=== PATIENT | male | born 1970 | race Caucasian/White ===

== ENCOUNTER 2023-02-18 22:35 | Inpatient (IN) | payer OTHER ==
--- NOTE | 2023-02-18 22:58 | ED ---
Chest Pain HPI - General Chief Complaint: Chest Pain Stated Complaint: Chest Pain Time Seen by Provider: 02/18/23 22:37 Source: patient, EMS Mode of arrival: EMS Limitations: no limitations - History of Present Illness Initial Comments: Please see downtime charting. Patient is a 52-year-old male who presents to the emergency department reporting chest pain. Pain started just prior to hospital arrival area and he admits to associated shortness of breath. He does have a history of liver failure with ascites. 3 weeks ago the patient had 7 L removed from his abdomen. He is from the [place] area however is important [place] for the summer as his father lives felt this way. Patient continues to drink and is intoxicated at this time. He denies history of cardiac disease. He does not take any blood thinners. No other alleviating, precipitating or modifying factors - Related Data Home Medications Medication Instructions Recorded Confirmed Furosemide [Lasix] 40 mg PO DAILY 02/19/23 02/19/23 Spironolactone [Aldactone] 50 mg PO BID 02/19/23 02/19/23 Previous Rx's Medication Instructions Recorded Metoprolol Tartrate [Lopressor] 12.5 mg PO BID 30 Days #60 tablet 02/25/23 Thiamine [Vitamin B-1] 100 mg PO DAILY #14 tablet 02/25/23 Allergies Allergy/AdvReac Type Severity Reaction Status Date / Time latex Allergy Rash/Hives Verified 02/19/23 08:00 Review of Systems ROS Statement: Those systems with pertinent positive or pertinent negative responses have been documented in the HPI. ROS Other: All systems not noted in ROS Statement are negative. Past Medical History Past Medical History: Renal Disease Additional Past Medical History / Comment(s): Ascites, History of Any Multi-Drug Resistant Organisms: None Reported Past Psychological History: Depression Smoking Status: Current some day smoker Past Alcohol Use History: Daily, Heavy Past Drug Use History: None Reported - Past Family History Mother Family Medical History: Diabetes Mellitus General Exam Limitations: no limitations General appearance: alert, in no apparent distress Head exam: Present: atraumatic, normocephalic, normal inspection Eye exam: Present: normal appearance, PERRL, EOMI. Absent: scleral icterus, conjunctival injection, periorbital swelling ENT exam: Present: normal exam, mucous membranes moist Neck exam: Present: normal inspection. Absent: tenderness, meningismus, ly mphadenopathy Respiratory exam: Present: respiratory distress (on the right), decreased breath sounds. Absent: wheezes, rales, rhonchi, stridor Cardiovascular Exam: Present: tachycardia, normal heart sounds. Absent: systolic murmur, diastolic murmur, rubs, gallop, clicks GI/Abdominal exam: Present: soft, distended, normal bowel sounds. Absent: tenderness, guarding, rebound, rigid Extremities exam: Present: normal inspection, full ROM, normal capillary refill. Absent: tenderness, pedal edema, joint swelling, calf tenderness Back exam: Present: normal inspection Neurological exam: Present: alert, oriented X3, CN II-XII intact Psychiatric exam: Present: normal affect, normal mood Skin exam: Present: warm, dry, intact, normal color. Absent: rash Course Vital Signs 02/18/23 02/18/23 22:38 22:44 Temperature 98 F Pulse Rate 128 H Respiratory 18 Rate Blood Pressure 136/98 O2 Sat by Pulse 88 L 100 Oximetry Chest Pain MDM - MDM Was pt. sent in by a medical professional or institution (Dr. PA, BASS FISHER, urgent care, hospital, or retirement...) When possible be specific @ -No Did you speak to anyone other than the patient for history (EMS, parent, family, police, friend...)? What history was obtained from this source @ -EMS Did you review nursing and triage notes (agree or disagree)? Why? @ -I reviewed and agree with nursing and triage notes Were old charts reviewed (outside hosp., previous admission, EMS record, old EKG, old radiological studies, urgent care reports/EKG's, retirement records)? Report findings @ -No old charts were reviewed Differential Diagnosis (chest pain, altered mental status, abdominal pain women, abdominal pain men, vaginal bleeding, weakness, fever, dyspnea, syncope, headache, dizziness, GI bleed, back pain, seizure, CVA, palpatations, mental health, musculoskeletal)? @ -afib, svt, influenza, pulmonary edema, chf, copd EKG interpreted by me (3pts min.). @ -Yes and demonstrates sinus tachycardia with a rate of 125. NV interval 165. QRS 80. QTC is 390. No acute ST segment elevations or depressions X-rays interpreted by me (1pt min.). @ -yes - pleural effusion CT interpreted by me (1pt min.). @ -yes- no pe U/S interpreted by me (1pt. min.). @ -None done What testing was considered but not performed or refused? (CT, X-rays, U/S, labs)? Why? @ -None What meds were considered but not given or refused? Why? @ -None Did you discuss the management of the patient with other professionals (professionals i.e. , PA, BASS FISHER, lab, RT, psych nurse, perinatal social worker, mobile patrol officer, teacher, contracting officer, forensic manager)? Give summary @ -Dr. Bañuelos - admitting physician Was smoking cessation discussed for >3mins.? @ -No Was critical care preformed (if so, how long)? @ -No Were there social determinants of health that impacted care today? How? (Homelessness, low income, unemployed, alcoholism, drug addiction, transportation, low edu. Level, literacy, decrease access to med. care, half-way, rehab)? @ -No Was there de-escalation of care discussed even if they declined (Discuss DNR or withdrawal of care, Hospice)? DNR status @ -No What co-morbidities impacted this encounter? (DM, HTN, Smoking, COPD, CAD, Cancer, CVA, ARF, Chemo, Hep., AIDS, mental health diagnosis, sleep apnea, morbid obesity)? @ -etoh abuse, liver cirrhosis, ascites Was patient admitted / discharged? Hospital course, mention meds given and route, prescriptions, significant lab abnormalities, going to OR and other pertinent info. @ -Upon arrival patient is placed into trauma 1. A thorough history and physical exam is performed. 12-lead EKG is obtained. Laboratory studies are conducted. States that his pain is 6 out of 10. Chest x-ray demonstrates a large right-sided pleural effusion. He is on 6 L of oxygen normally does not require oxygen. Laboratory studies demonstrate low platelets and an INR 1.5. Patient will be admitted for pulmonology consult for possible thoracentesis Undiagnosed new problem with uncertain prognosis? @ -yes Drug Therapy requiring intensive monitoring for toxicity (Heparin, Nitro, Insulin, Cardizem)? @ -No Were any procedures done? @ -No Diagnosis/symptom? @ -acute hypoxis resp failure, acute pleural effusion, liver failure (chronic) Acute, or Chronic, or Acute on Chronic? @ -acute Uncomplicated (without systemic symptoms) or Complicated (systemic symptoms)? @ -complicated Side effects of treatment? @ -No Exacerbation, Progression, or Severe Exacerbation? @ -No Poses a threat to life or bodily function? How? (Chest pain, [place], [place], pneumonia, PE, COPD, DKA, ARF, appy, cholecystitis, CVA, Diverticulitis, Homicidal, Suicidal, threat to staff... and all critical care pts) @ -yes, hypoxia can lead to respiratory arrest Disposition Clinical Impression: Pleural effusion, Hypoxia, Cirrhosis Disposition: ADMITTED IP TO THIS HOSP Condition: Good Is patient prescribed a controlled substance at d/c from ED?: No
[2023-02-19 05:16] LABS: ALT 41 U/L (4-49); AST 107 U/L (17-59); African American GFR (CKD) >90 (>60 ml/min/1.73 sqM); Albumin 3.1 g/dL (3.5-5.0); Alkaline Phosphatase 364 U/L (38-126); Anion Gap 14 mmol/L; Anisocytosis Slight; Basophils % (A) 0 %; Blood Urea Nitrogen 11 mg/dL (9-20); Calcium 7.8 mg/dL (8.4-10.2); Carbon Dioxide 21 mmol/L (22-30); Chloride 105 mmol/L (98-107); Eosinophils % (A) 0 %; Glucose 127 mg/dL (74-99); HCT 39.4 % (39.0-53.0); HGB 13.1 gm/dL (13.0-17.5); Lipase 384 U/L (23-300); Lymphocytes % (A) 16 %; MCH 33.4 pg (25.0-35.0); MCHC 33.4 g/dL (31.0-37.0); Macrocytosis Slight; Magnesium 1.8 mg/dL (1.6-2.3); Mean Platelet Volume 8.6; Monocytes # (A) 0.3 k/uL (0-1.0); Monocytes % (A) 5 %; Neutrophils # (A) 4.6 k/uL (1.3-7.7); Neutrophils % (A) 75 %; Non-African American GFR(CKD) >90 (>60 ml/min/1.73 sqM); Potassium 4.3 mmol/L (3.5-5.1); RBC 3.94 m/uL (4.30-5.90); RDW 17.9 % (11.5-15.5); Sodium 140 mmol/L (137-145); Total Bilirubin 2.6 mg/dL (0.2-1.3); Total Protein 8.9 g/dL (6.3-8.2); WBC 6.1 k/uL (3.8-10.6)
[2023-02-19 05:17] LABS: INR 1.5 (<1.2); Partial Thromboplastin Time 31.4 sec (22.0-30.0)
[2023-02-19 05:21] LABS: Alcohol 407 mg/dL
--- NOTE | 2023-02-19 05:29 | XR ---
EXAMINATION TYPE: XR chest 2V DATE OF EXAM: 02/18/2023 COMPARISON: NONE HISTORY: Chest pain. Shortness of breath. TECHNIQUE: Frontal and lateral views of the chest are obtained. FINDINGS: Moderate to large size right pleural effusion is present. Silhouetting of the right heart border and right hemidiaphragm is seen. Left lung is clear. No definitive mediastinal shift. The os seous structures are intact. IMPRESSION: Moderate to large sized right pleural effusion. Clinical correlation and Follow-up advis ed.
[2023-02-19] MEDS ORDERED: NALOXONE 0.4 MG/ML 1 ML VIAL IV PRN (05:50)
[2023-02-19] MEDS ORDERED: LORazepam 1 MG TAB PO PRN ×2 (05:51)
[2023-02-19] MEDS ORDERED: LORazepam 0.5 MG TAB PO PRN (05:51)
[2023-02-19] MEDS ORDERED: THIAMINE 100 MG/ML 2 ML VIAL IM STA (05:51)
--- NOTE | 2023-02-19 05:57 | P.HPIM ---
History of Present Illness H&P Date: 02/19/23 The patient is a 52-year-old male with a PMH of alcoholic cirrhosis with ongoing alcohol abuse who presents to the emergency room with complaints of chest discomfort or shortness of breath. The reports that he has been experiencing intermittent substernal and right-sided chest discomfort occurring over the past several weeks. He reports that the current episode started earlier tonight at around 7 PM, with pressure-like substernal chest discomfort with radiation to the right side of the chest, with associated shortness of breath, with no alleviating or S being features, 4 out of 10 at maximal intensity. At time of injury, the patient reports that the pain has improved to a 2 out of 10. The patient states that he has been undergoing intermittent paracentesis roughly once monthly. He reports ongoing although values, currently drinking a pint of hard liquor on most days. He is not experiencing cough, fever, chills. Denied nausea, vomiting, abdominal pain, diarrhea. He underwent an extensive evaluation in the emergency room. Laboratory evaluation was remarkable for an alcohol level of 407, WBC count 6.1, hemoglobin 13, because 69, d-dimer 7.07, troponin less than 0.012, sodium 140, potassium 4.3, chloride 105, CO2 21, BUN 11, creatinine 0.5, glucose 127. CT chest revealed a large right-sided pleural effusion appearing loculated causing collapse of the right lung. There was no evidence for pulmonary embolism. ED documentation reviewed and case discussed with ED provider. Review of systems: Pertinent positives and negatives as discussed in HPI, a complete review of systems was performed and all other systems are negative. Physical examination: Vital signs reviewed General: Jaundiced appearing male, no distress, appears at stated age, normal weight Derm: no unusual rashes/lesions, warm Head: atraumatic, normocephalic, symmetric Eyes: EOMI, no lid lag, scleral icterus noted, pupils equal round reactive to light ENT: Nose and ears atraumatic Neck: No cervical lymphadenopathy, trachea midline, supple Mouth: no lip lesion, mucus membranes moist Cardiovascular: S1S2 reg, no murmur, positive dorsalis pedis pulse bilateral, no edema Lungs: CTA bilateral, no rhonchi, no rales, no accessory muscle use Abdominal: Distended, nontender to palpation, no guarding Ext: muscle strength 5 out of 5 in all 4 extremities grossly, no gross muscle atrophy, no contractures, Neuro: CN II-XI grossly intact, no gross focal neuro deficits Psych: Alert, oriented, appropriate affect Assessment: Acute hypoxic respiratory failure likely secondary to large R sided pleural effusion Alcoholic cirrhosis Ongoing alcohol abuse Thrombocytopenia Imaging: CT chest revealed a large right-sided pleural effusion appearing loculated causing collapse of the right lung. Data Review: Laboratory evaluation was remarkable for an alcohol level of 407, WBC count 6.1, hemoglobin 13, because 69, d-dimer 7.07, troponin less than 0.012, sodium 140, potassium 4.3, chloride 105, CO2 21, BUN 11, creatinine 0.5, glucose 127. Plan: Pulmonary consulted for thoracentesis The patient counseled extensively on the need for alcohol cessation Thrombocytopenia likely due to alcohol abuse CIWA protocol with Ativan po prn Thiamine DVT prophylaxis: IPCD's The patient is admitted with an anticipated greater than 2 midnight stay for evaluation of hypoxic resp failure CODE STATUS: Full Code Discussed with: Patient Anticipated discharge place: Home Past Medical History Past Medical History: Liver Disease, Renal Disease Additional Past Medical History / Comment(s): Ascites, History of Any Multi-Drug Resistant Organisms: None Reported Past Psychological History: Depression Smoking Status: Current some day smoker Past Alcohol Use History: Daily, Heavy Past Drug Use History: None Reported - Past Family History Mother Family Medical History: Diabetes Mellitus Medications and Allergies Allergies Allergy/AdvReac Type Severity Reaction Status Date / Time latex AdvReac Rash/Hives Verified 02/18/23 22:52 Physical Exam Vitals: Vital Signs Temp Pulse Resp BP Pulse Ox 02/18/23 22:44 100 02/18/23 22:38 98 F 128 H 18 136/98 88 L Intake and Output 02/18/23 02/18/23 02/19/23 14:59 22:59 06:59 Other: # Voids 0 Weight 79.379 kg Results CBC & Chem 7: 02/18/23 22:46 Labs: Abnormal Lab Results - Last 24 Hours (Table) 02/18/23 Range/Units 22:46 Carbon Dioxide 21 L (22-30) mmol/L Creatinine 0.51 L (0.66-1.25) mg/dL Glucose 127 H (74-99) mg/dL Calcium 7.8 L (8.4-10.2) mg/dL Total Bilirubin 2.6 H (0.2-1.3) mg/dL AST 107 H (17-59) U/L Alkaline Phosphatase 364 H (38-126) U/L Total Protein 8.9 H (6.3-8.2) g/dL Albumin 3.1 L (3.5-5.0) g/dL Lipase 384 H (23-300) U/L Serum Alcohol 407 H* mg/dL
[2023-02-19 05:58] LABS: Platelet Count 69 k/uL (150-450)
[2023-02-19] MEDS: LORazepam 1 MG TAB PO PRN ×3 (08:28→21:14)
--- NOTE | 2023-02-19 08:31 | P.CNPUL ---
History of Present Illness Consult date: 02/19/23 Requesting physician: Ericka Bañuelos Reason for consult: pleural effusion Chief complaint: Shortness of breath and associated chest pain History of present illness: I am seeing this patient in new consultation today 02/19/2023 for a large right- sided pleural effusion. Patient is a 52-year-old white male with past medical history significant for alcoholism, drinks approximately 1 pint per day, liver cirrhosis and ascites requiring frequent paracentesis, and is a current smoker. Patient came into the emergency room last night complaining of shortness of breath and chest pain that radiated from the left side of his chest to the right. Patient was intoxicated on arrival with a serum EtOH level of 407. Patient does have large volume ascites, and his last paracentesis was reportedly 3 weeks ago. Chest x-ray on arrival shows a large sized right pleural effusion. Patient's d-dimer was elevated on arrival, probably related to the patient's liver disease. I did review the patient's chest CTA, and there is no obvious central pulmonary embolism. There was redemonstration of the large right pleural effusion. He denies taking any anticoagulants. Patient is currently resting in bed, on 6 L nasal cannula, in no acute distress. He denies any fever, chills, cough, sick contacts. He reports occasional palpitations. Denies any lower extremity swelling, orthopnea, PND, syncope. Troponin was negative 1. ECG on arrival showed no obvious evidence of acute ischemic changes. CBC shows a WBC count of 6.1, hemoglobin 13, hematocrit 39, platelets low at 69. INR is 1.5. CMP shows a sodium 140, potassium 4.3, chloride 105, serum bicarb 21, BUN 11, creatinine 0.51, glucose 127. LFTs are mildly elevated. Lipase was mildly elevated at 384. Patient is currently on the CIWA protocol, no obvious signs of withdrawal. No need for ICU admission currently. He is also receiving vitamin B1 supplementation. Vital signs are stable. Review of Systems REVIEW OF SYSTEMS: CONSTITUTIONAL: Denies any recent significant weight loss or weight gain. Denies recent trauma. EYES: Denies change in vision. EARS, NOSE, MOUTH, THROAT: Denies headaches, denies sore throat. CARDIOVASCULAR: See HPI RESPIRATORY: See HPI. GASTROINTESTINAL: Denies change in appetite, abdominal pain, nausea and vomiting, or diarrhea. admits abdominal distention. GENITOURINARY: Denies hematuria, denies infections. MUSKULOSKELETAL: Denies pain, denies swelling. INTEGUMENTARY: Denies rash, denies eczema. NEUROLOGICAL: Denies recent memory loss, no recent seizure activity. PSYCHIATRIC: Denies anxiety, denies depression. HEMATOLOGIC/LYMPHATIC: Denies anemia, denies enlarged lymph node Past Medical History Past Medical History: Renal Disease Additional Past Medical History / Comment(s): Ascites, History of Any Multi-Drug Resistant Organisms: None Reported Past Psychological History: Depression Smoking Status: Current some day smoker Past Alcohol Use History: Daily, Heavy Past Drug Use History: None Reported - Past Family History Mother Family Medical History: Diabetes Mellitus Medications and Allergies Home Medications Medication Instructions Recorded Confirmed Type Furosemide [Lasix] 40 mg PO DAILY 02/19/23 02/19/23 History Spironolactone [Aldactone] 50 mg PO BID 02/19/23 02/19/23 History Allergies Allergy/AdvReac Type Severity Reaction Status Date / Time latex Allergy Rash/Hives Verified 02/19/23 08:00 Physical Exam Vitals: Vital Signs Temp Pulse Pulse Resp BP BP Pulse Ox 02/19/23 07:44 97.6 F 117 H 20 129/79 94 L 02/18/23 22:44 100 02/18/23 22:38 98 F 128 H 18 136/98 88 L Intake and Output 02/18/23 02/19/23 02/19/23 22:59 06:59 14:59 Other: # Voids 0 Weight 79.379 kg GENERAL EXAM: Alert, 52-year-old white male, comfortable in no apparent distress. HEAD: Normocephalic and atraumatic EYES: Normal reaction of pupils, equal size. NOSE: Clear with pink turbinates. THROAT: No erythema or exudates. NECK: No masses, no JVD. CHEST: No chest wall deformity. LUNGS: Diminished right sided lung sounds. no crackles, wheeze, rhonchi or dullness. On 6 L/m nasal cannula. No conversational dyspnea or accessory muscle use.. CVS: S1 and S2 normal with no audible murmur, regular rhythm. No extra heart sounds ABDOMEN: There is significant large volume ascites. Active bowel sounds, no guarding or rigidity. SPINE: No scoliosis or deformity SKIN: No rashes CENTRAL NERVOUS SYSTEM: No focal deficits, tone is normal in all 4 extremities. Mild tremor appreciated with arm extension. EXTREMITIES: There is no peripheral edema, clubbing, or cyanosis. Peripheral pulses are intact. Results - Laboratory Findings CBC and BMP: 02/19/23 09:56 02/19/23 09:56 PT/INR, D-dimer PT 15.0 sec (9.0-12.0) H 02/18/23 22:46 INR 1.5 (<1.2) H 02/18/23 22:46 D-Dimer 7.07 mg/L FEU (<0.60) H 02/18/23 22:46 Abnormal lab findings: Abnormal Labs 02/18/23 02/18/23 02/18/23 22:46 22:46 22:46 RBC 3.94 L RDW 17.9 H Plt Count 69 L PT 15.0 H INR 1.5 H APTT 31.4 H D-Dimer 7.07 H Carbon Dioxide 21 L Creatinine 0.51 L Glucose 127 H Calcium 7.8 L Total Bilirubin 2.6 H AST 107 H Alkaline Phosphatase 364 H Total Protein 8.9 H Albumin 3.1 L Lipase 384 H Serum Alcohol 407 H* - Diagnostic Findings Chest x-ray: image reviewed CT scan - chest: image reviewed Assessment and Plan Assessment: Acute hypoxemic respiratory failure, currently on 6 L/m nasal cannula, related to large right-sided pleural effusion, possible hepatic hydrothorax. Chest pain, acute coronary syndrome ruled out Elevated d-dimer, no obvious central pulmonary embolism on chest CTA. Acute alcohol intoxication, serum EtOH was 407 on arrival History of alcoholism History of alcohol withdrawal and delirium tremens Alcoholic liver disease and ascites Thrombocytopenia, likely related to liver disease Current smoker Plan: Patient's medications, labs, chest x-ray, chest CTA reviewed Continue supplemental oxygen to maintain oxygen saturation 92% or greater Consult interventional radiology for paracentesis I will discuss the need for right-sided thoracentesis today with Dr. Pugh Not on any anticoagulants Continue CIWA protocol Continue vitamin B1 supplementation No need for ICU admission at this point Nicotine replacement offered Smoking cessation education performed We will continue to follow I have personally seen and examined the patient, performed the documentation and the assessment and plan as written. Number of minutes spent on the visit:20 This is a joint evaluation that was done along with the nurse practitioner. The patient is a 52-year-old nice gentleman who lives in the [place] area and he has had issues with liver cirrhosis and ascites and the patient has had previous paracentesis. He does not recall having any thoracentesis. He came in with hypoxic respiratory failure and he has a large right-sided pleural effusion that needs to be drained. I'm going to do a bedside thoracentesis on this patient and the patient will likely need an IR guided paracentesis of the sciatic fluids. We'll watch for any signs of delirium tremens. We'll continue to follow. He is awake and communicating at this point in time. No signs of any agitation or restlessness or confusion or encephalopathy. His ventilation within a more than 30 minutes. Time with Patient: Greater than 30
[2023-02-19] MEDS ORDERED: FUROSEMIDE 40 MG TAB PO SCH (09:00)
[2023-02-19 10:53] LABS: ALT 44 U/L (4-49); AST 114 U/L (17-59); African American GFR (CKD) >90 (>60 ml/min/1.73 sqM); Albumin 3.2 g/dL (3.5-5.0); Albumin/Globulin Ratio 0.6; Alkaline Phosphatase 379 U/L (38-126); Anion Gap 12 mmol/L; Blood Urea Nitrogen 10 mg/dL (9-20); Calcium 7.6 mg/dL (8.4-10.2); Carbon Dioxide 22 mmol/L (22-30); Chloride 101 mmol/L (98-107); Globulin 5.8 g/dL; Glucose 107 mg/dL (74-99); Non-African American GFR(CKD) >90 (>60 ml/min/1.73 sqM); Potassium 4.5 mmol/L (3.5-5.1); Sodium 135 mmol/L (137-145); Total Bilirubin 2.9 mg/dL (0.2-1.3)
[2023-02-19 11:09] LABS: Anisocytosis Slight; HCT 39.4 % (39.0-53.0); HGB 13.1 gm/dL (13.0-17.5); MCH 34.5 pg (25.0-35.0); MCHC 33.3 g/dL (31.0-37.0); MCV 103.7 fL (80.0-100.0); Macrocytosis Moderate; Mean Platelet Volume 9.3; RDW 17.4 % (11.5-15.5); WBC 5.6 k/uL (3.8-10.6)
[2023-02-19 11:27] LABS: Platelet Count 64 k/uL (150-450)
--- NOTE | 2023-02-19 11:52 | CT ---
EXAM: CT Angiography Chest With Intravenous Contrast CLINICAL HISTORY: Elevated D-dimer TECHNIQUE: Axial computed tomographic angiography images of the chest with intravenous contrast. CTDI is 17.8 mGy and DLP is 506.1 mGy-cm. This CT exam was performed using one or more of the following dose reduction techniques: automated exposure control, adjustment of the mA and/or kV according to patient size, and/or use of iterative reconstruction technique. MIP reconstructed images were created and reviewed. Coronal and sagittal reformatted images were created and reviewed. 569 images COMPARISON: lateral Chest radiograph from yesterday FINDINGS: Pulmonary arteries: No pulmonary embolism. No thoracic aortic aneurysm or dissection. Aorta: No acute findings. No thoracic aortic aneurysm. Lungs: Unremarkable. No mass. No consolidation. Pleural space: Large right pleural effusion, appears loculated, causing collapse of right lung. No pneumothorax. Heart: Unremarkable. No cardiomegaly. No significant pericardial effusion. No evidence of RV dysfunction. Bones/joints: Osteopenia. Mild degenerative changes. No acute findings Soft tissues: Bilateral gynecomastia. Mild anasarca. Lymph nodes: Unremarkable. No enlarged lymph nodes. Liver: Diffuse fatty infiltration the liver. Questionable Cirrhosis . Gallbladder and bile ducts: Cholecystectomy clips. Kidneys and ureters: 12 mm exophytic lateral left renal cyst. IMPRESSION: 1. Large right pleural effusion, appears loculated, causing collapse of right lung. 2. No pulmonary embolism. No thoracic aortic aneurysm or dissection. 3. Bilateral gynecomastia. 4. Mild anasarca. 5. Diffuse fatty infiltration the liver. Questionable Cirrhosis .
--- NOTE | 2023-02-19 12:19 | P.PCN ---
Date of Procedure: 02/19/23 Description of Procedure: A time out was performed and the chest x-ray was reviewed, the appropriate side was confirmed and marked. My hands were washed immediately prior to the procedure. I wore a surgical cap, mask with protective eyewear, sterile gown and sterile gloves throughout the procedure. The patient was prepped and draped in a sterile manner using chlorhexidine scrub after the appropriate level was percussed and confirmed by ultrasound. 1% lidocaine was used to anesthesize the skin, subcutaneous tissue, superior aspect of the rib periosteum and parietal pleura. A finder needle was then introduced over the superior aspect of the rib to locate the pleural fluid; 2colored fluid was aspirated at a depth of approximately 2 cm. A 10-blade scalpel was used to russel the skin at the insertion site. The [id number] needle was then introduced through the skin incision into the pleural space using negative aspiration pressure and the red colometric indicator to confirm appropriate positioning of the needle. The thoracentesis catheter was then threaded without difficulty. 2400 ml of turbid colored fluid was removed without difficulty. The catheter was then removed. No immediate complications were noted during the procedure. A post-procedure chest x-ray is pending at the time of this note. The fluid will be sent for studies. Estimated blood loss is 0cc
[2023-02-19] MEDS: SPIRONOLACTONE 25 MG TAB PO SCH ×2 (12:36→21:14)
[2023-02-19] MEDS: NICOTINE 21MG/24HR PATCH TRANSDERM SCH (12:36)
--- NOTE | 2023-02-19 13:05 | XR ---
EXAMINATION TYPE: XR chest 1V portable DATE OF EXAM: 02/19/2023 Comparison: 02/18/2023 Clinical History: 52-year-old male follow up thoracentesis. Findings: Some progression of volume loss in the right hemithorax. Moderate to large right-sided pleural effusi on remains with underlying patchy opacity to the upper third lung level. There is a small 3.6 cm righ t upper lung pneumothorax noted now. Left lung and pleural space are clear. Right heart margin obscur ed by adjacent parenchymal opacity. Impression: 1. Moderate to large residual right-sided pleural effusion following thoracentesis. Decreased from pr ior. 2. However, there is a small 3.6 cm right apical pneumothorax noted now. Called to [facility] and given t o nurse Pickard at 1:00 pm. 3. Some progression in volume loss in the right side of the chest.
[2023-02-19] MEDS: FUROSEMIDE 10 MG/ML 4 ML VIAL IV SCH ×2 (13:25→21:14)
--- NOTE | 2023-02-19 15:58 | XR ---
EXAMINATION TYPE: XR chest 1V portable DATE OF EXAM: 02/19/2023 COMPARISON: 02/19/2023 HISTORY: Postthoracentesis TECHNIQUE: Single frontal view of the chest is obtained. FINDINGS: Remains right sided consolidation moderate pleural effusion with a small less than 5% apic al pneumothorax. Left lung clear. Heart size stable. Arthropathy of the shoulders. IMPRESSION: 1. Stable moderate-sized pleural effusion with small approximately 5% right apical pneumothorax. No s ignificant change.
[2023-02-19] MEDS ORDERED: SODIUM CHLORIDE 0.9% 500 ML 500 ML IV ONE (16:54)
[2023-02-20] MEDS ORDERED: LORazepam 2 MG/ML INJ IV PRN ×2 (00:50)
[2023-02-20] MEDS: LORazepam 2 MG/ML INJ IV PRN ×6 (01:32→23:18)
[2023-02-20 03:21] LABS: Amylase,Body Fluid 51 U/L; Glucose, BF Source Pleural Fluid; Glucose, Body Fluid 117 mg/dL; LDH, Body Fluid Source Pleural Fluid; T. Protein, Body Fluid Source Pleural Fluid; Total Protein, Body Fluid 2460 mg/dL
[2023-02-20 05:11] LABS: Appearance,BF Slightly Cloudy (Clear)
[2023-02-20] MEDS: NICOTINE 21MG/24HR PATCH TRANSDERM SCH (08:20)
[2023-02-20] MEDS: FUROSEMIDE 10 MG/ML 4 ML VIAL IV SCH ×2 (08:20→21:00)
[2023-02-20] MEDS: SPIRONOLACTONE 25 MG TAB PO SCH ×2 (08:20→21:00)
[2023-02-20] MEDS: THIAMINE 100 MG TAB PO SCH (08:20)
[2023-02-20 09:32] LABS: ALT 43 U/L (4-49); AST 114 U/L (17-59); African American GFR (CKD) >90 (>60 ml/min/1.73 sqM); Albumin/Globulin Ratio 0.5; Alkaline Phosphatase 376 U/L (38-126); Anion Gap 8 mmol/L; Blood Urea Nitrogen 10 mg/dL (9-20); Calcium 7.9 mg/dL (8.4-10.2); Carbon Dioxide 28 mmol/L (22-30); Chloride 96 mmol/L (98-107); Globulin 5.8 g/dL; Glucose 82 mg/dL (74-99); Non-African American GFR(CKD) >90 (>60 ml/min/1.73 sqM); Potassium 3.4 mmol/L (3.5-5.1); Sodium 132 mmol/L (137-145); Total Bilirubin 3.8 mg/dL (0.2-1.3); Total Protein 8.8 g/dL (6.3-8.2)
[2023-02-20 09:49] LABS: Anisocytosis Slight; HCT 39.1 % (39.0-53.0); HGB 12.9 gm/dL (13.0-17.5); MCH 33.2 pg (25.0-35.0); MCHC 33.1 g/dL (31.0-37.0); MCV 100.4 fL (80.0-100.0); Macrocytosis Slight; Mean Platelet Volume 12.2; RBC 3.89 m/uL (4.30-5.90); RDW 17.5 % (11.5-15.5); WBC 4.2 k/uL (3.8-10.6)
[2023-02-20 10:12] LABS: Platelet Count 35 k/uL (150-450)
[2023-02-20 11:19] LABS: Total Protein 8.7 d/dL (6.2-8.2)
[2023-02-20] MEDS ORDERED: POTASSIUM CHLORIDE ER 20 MEQ TAB.ER PO STA (13:56)
--- NOTE | 2023-02-20 14:23 | P.PN ---
Subjective Progress Note Date: 02/20/23 The patient is a 52-year-old male with a PMH of alcoholic cirrhosis with ongoing alcohol abuse who presents to the emergency room with complaints of chest discomfort or shortness of breath. He underwent an extensive evaluation in the emergency room. Laboratory evaluation was remarkable for an alcohol level of 407, WBC count 6.1, hemoglobin 13, because 69, d-dimer 7.07, troponin less than 0.012, sodium 140, potassium 4.3, chloride 105, CO2 21, BUN 11, creatinine 0.5, glucose 127. CT chest revealed a large right-sided pleural effusion appearing loculated causing collapse of the right lung. There was no evidence for pulmonary embolism. Patient started on Lasix 40 mg IV twice a day. Aldactone was restarted. Pulmonology was consulted and patient underwent thoracentesis with removal of 2400 mL of fluid. He was empirically started on Rocephin for treatment of SBP. Interventional radiology was consulted for paracentesis. Unfortunately, this procedure was delayed due to a platelet count of 35. Patient was seen and examined. No acute events overnight. Patient reports no complaints. He has been tachycardic with heart rate in the 130-140s. CBC today shows Hg 12.9 and platelet count of 35.CMP shows Na 132. K 3.4, Cl 96, Cr 0.46, Ca 7.9, T. Bili 3.8, AST 114, alk phos 376, albumin 3.0. Vital signs reviewed General: Jaundiced appearing male, no distress, appears at stated age, normal w [age] Derm: no unusual rashes/lesions, warm Head: atraumatic, normocephalic, symmetric Eyes: EOMI, no lid lag, scleral icterus noted ENT: Nose and ears atraumatic Neck: No cervical lymphadenopathy, trachea midline, supple Cardiovascular: Tachycardic, no murmur, no edema Lungs: Decreased BS bilateral, no rhonchi, no rales, no accessory muscle use Abdominal: Distended, nontender to palpation, no guarding Ext: muscle strength 5 out of 5 in all 4 extremities grossly, no gross muscle atrophy, no contractures, Neuro: no gross focal neuro deficits Psych: Alert, oriented, appropriate affect Acute hypoxic respiratory failure likely secondary to large R sided pleural effusion Alcoholic cirrhosis Ongoing alcohol abuse Thrombocytopenia Based on my assessment of this patient, this patient meets a high complexity level of care. Patient has an acute diagnosis of acute hypoxic respiratory failure secondary to large loculated right-sided pleural effusion that poses a threat to life or bodily function. He underwent thoracentesis on 02/19 with removal 2400 mL of fluid. Plans for paracentesis tomorrow with interventional radiology. Plans to transfuse 1 unit platelet. Continue Lasix 40 mg IV twice a day. Daily monitoring of BMP as Lasix is nephrotoxic. Aldactone 50 mg by mouth twice a day. Start metoprolol 12.5 mg by mouth twice a day for tachycardia. Continue CIWA protocol with Ativan as needed. Telemetry monitoring and supplemental O2 to maintain O2 saturation > 92%. SCDs for DVT prophylaxis. FULL CODE. I have reviewed the following [facility] consultant notes: I have reviewed the results of the following tests: CBC, CMP as above. I have ordered the following tests: Echocardiogram ordered. Repeat CBC and BMP tomorrow morning. I have discussed the care of this patient with the following independent historian: I have independently interpreted the following test below: CXR from 02/19 shows small apical PTX on the right side. I have discussed the management of this patient with the following physician: The case was discussed with Dr. Pugh regarding findings on CXR yesterday. Objective - Vital Signs Vital signs: Vital Signs Temp 98.1 F 02/20/23 07:33 Pulse 133 H 02/20/23 07:38 Resp 20 02/20/23 07:38 BP 144/95 02/20/23 07:33 Pulse Ox 92 L 02/20/23 07:33 FiO2 Intake & Output 02/19/23 02/20/23 02/20/23 18:59 06:59 18:59 Output Total 800 Balance -800 Output: Urine 800 Other: Voiding Method Urinal Urinal Urinal # Voids 3 2 1 - Labs CBC & Chem 7: 02/20/23 07:28 02/20/23 07:28 Labs: Abnormal Lab Results - Last 24 Hours (Table) 02/19/23 02/20/23 02/20/23 Range/Units 12:15 07:28 07:28 RBC 3.89 L (4.30-5.90) m/uL Hgb 12.9 L (13.0-17.5) gm/dL MCV 100.4 H (80.0-100.0) fL RDW 17.5 H (11.5-15.5) % Plt Count 35 L (150-450) k/uL Sodium (137-145) mmol/L Potassium (3.5-5.1) mmol/L Chloride (98-107) mmol/L Creatinine (0.66-1.25) mg/dL Calcium (8.4-10.2) mg/dL Total Bilirubin (0.2-1.3) mg/dL AST (17-59) U/L Alkaline Phosphatase (38-126) U/L Total Protein 8.7 H (6.2-8.2) d/dL Albumin (3.5-5.0) g/dL Fluid Appearance Slightly Cloudy A (Clear) 02/20/23 Range/Units 07:28 RBC (4.30-5.90) m/uL Hgb (13.0-17.5) gm/dL MCV (80.0-100.0) fL RDW (11.5-15.5) % Plt Count (150-450) k/uL Sodium 132 L (137-145) mmol/L Potassium 3.4 L (3.5-5.1) mmol/L Chloride 96 L (98-107) mmol/L Creatinine 0.46 L (0.66-1.25) mg/dL Calcium 7.9 L (8.4-10.2) mg/dL Total Bilirubin 3.8 H (0.2-1.3) mg/dL AST 114 H (17-59) U/L Alkaline Phosphatase 376 H (38-126) U/L Total Protein 8.8 H (6.2-8.2) d/dL Albumin 3.0 L (3.5-5.0) g/dL Fluid Appearance (Clear)
[2023-02-20] MEDS: METOPROLOL TARTRATE 12.5 MG TAB PO SCH ×2 (15:24→21:00)
--- NOTE | 2023-02-20 16:05 | P.PN ---
Subjective Progress Note Date: 02/20/23 I am seeing this patient in new consultation today 02/19/2023 for a large right- sided pleural effusion. Patient is a 52-year-old white male with past medical history significant for alcoholism, drinks approximately 1 pint per day, liver cirrhosis and ascites requiring frequent paracentesis, and is a current smoker. Patient came into the emergency room last night complaining of shortness of breath and chest pain that radiated from the left side of his chest to the right. Patient was intoxicated on arrival with a serum EtOH level of 407. Patient does have large volume ascites, and his last paracentesis was reportedly 3 weeks ago. Chest x-ray on arrival shows a large sized right pleural effusion. Patient's d-dimer was elevated on arrival, probably related to the patient's liver disease. I did review the patient's chest CTA, and there is no obvious central pulmonary embolism. There was redemonstration of the large right pleural effusion. He denies taking any anticoagulants. Patient is currently resting in bed, on 6 L nasal cannula, in no acute distress. He denies any fever, chills, cough, sick contacts. He reports occasional palpitations. Denies any lower extremity swelling, orthopnea, PND, syncope. Troponin was negative 1. ECG on arrival showed no obvious evidence of acute ischemic changes. CBC shows a WBC count of 6.1, hemoglobin 13, hematocrit 39, platelets low at 69. INR is 1.5. CMP shows a sodium 140, potassium 4.3, chloride 105, serum bicarb 21, BUN 11, creatinine 0.51, glucose 127. LFTs are mildly elevated. Lipase was mildly elevated at 384. Patient is currently on the CIWA protocol, no obvious signs of withdrawal. No need for ICU admission currently. He is also receiving vitamin B1 supplementation. Vital signs are stable. On today's evaluation of 02/18/2023, the patient is not having any respiratory distress. He has developed some sinus tachycardia which could be a reflection of either an underlying infection such as SBP or early signs of delirium tremens. The patient was covered with IV Rocephin. The patient was started on metoprolol 12.5 mg 2 twice a day. He is currently on 3 L of oxygen by nasal cannula. Heart rate is between 09/21/1931. The abdomen is extensive. A total of 4.2 with hemoglobin 12.9 and platelet count of 35. BUN is 10 with a creatinine of 0.4. Sodium is at 1:30 with a potassium level of 3.4 and chloride is 96 with a bicarb of 28. Is quite debilitated. Objective - Vital Signs Vital signs: Vital Signs Temp 98.1 F 02/20/23 07:33 Pulse 133 H 02/20/23 07:38 Resp 20 02/20/23 07:38 BP 144/95 02/20/23 07:33 Pulse Ox 92 L 02/20/23 07:33 FiO2 Intake & Output 02/19/23 02/20/23 02/20/23 18:59 06:59 18:59 Output Total 800 Balance -800 Output: Urine 800 Other: Voiding Method Urinal Urinal Urinal # Voids 3 2 1 - Exam GENERAL EXAM: Alert, 52-year-old white male, comfortable in no apparent distress. HEAD: Normocephalic and atraumatic EYES: Normal reaction of pupils, equal size. NOSE: Clear with pink turbinates. THROAT: No erythema or exudates. NECK: No masses, no JVD. CHEST: No chest wall deformity. LUNGS: Diminished right sided lung sounds. no crackles, wheeze, rhonchi or dullness. On 3 L/m nasal cannula. No conversational dyspnea or accessory muscle use.. CVS: S1 and S2 normal with no audible murmur, regular rhythm. No extra heart sounds ABDOMEN: There is significant large volume ascites. Active bowel sounds, no guarding or rigidity. SPINE: No scoliosis or deformity SKIN: No rashes CENTRAL NERVOUS SYSTEM: No focal deficits, tone is normal in all 4 extremities. Mild tremor appreciated with arm extension. EXTREMITIES: There is no peripheral edema, clubbing, or cyanosis. Peripheral pulses are intact. - Labs CBC & Chem 7: 02/20/23 07:28 02/20/23 07:28 Labs: Abnormal Lab Results - Last 24 Hours (Table) 02/19/23 02/19/23 02/20/23 Range/Units 09:56 12:15 07:28 RBC 3.80 L 3.89 L (4.30-5.90) m/uL Hgb 12.9 L (13.0-17.5) gm/dL MCV 103.7 H 100.4 H (80.0-100.0) fL RDW 17.4 H 17.5 H (11.5-15.5) % Plt Count 64 L 35 L (150-450) k/uL Sodium (137-145) mmol/L Potassium (3.5-5.1) mmol/L Chloride (98-107) mmol/L Creatinine (0.66-1.25) mg/dL Calcium (8.4-10.2) mg/dL Total Bilirubin (0.2-1.3) mg/dL AST (17-59) U/L Alkaline Phosphatase (38-126) U/L Total Protein (6.3-8.2) g/dL Albumin (3.5-5.0) g/dL Fluid Appearance Slightly Cloudy A (Clear) 02/20/23 Range/Units 07:28 RBC (4.30-5.90) m/uL Hgb (13.0-17.5) gm/dL MCV (80.0-100.0) fL RDW (11.5-15.5) % Plt Count (150-450) k/uL Sodium 132 L (137-145) mmol/L Potassium 3.4 L (3.5-5.1) mmol/L Chloride 96 L (98-107) mmol/L Creatinine 0.46 L (0.66-1.25) mg/dL Calcium 7.9 L (8.4-10.2) mg/dL Total Bilirubin 3.8 H (0.2-1.3) mg/dL AST 114 H (17-59) U/L Alkaline Phosphatase 376 H (38-126) U/L Total Protein 8.8 H (6.3-8.2) g/dL Albumin 3.0 L (3.5-5.0) g/dL Fluid Appearance (Clear) Assessment and Plan Assessment: Acute hypoxemic respiratory failure, currently on 3 L/m nasal cannula, related to large right-sided pleural effusion, and the patient underwent a thoracentesis with a total of 2.4 L of fluid being removed Pneumothorax ex vacuo the right upper lung field in the order of 5-10% Sinus tachycardia, rule out underlying [employer] and the patient is currently on IV Rocephin. Rule out early signs of delirium tremens Chest pain, acute coronary syndrome ruled out Elevated d-dimer, no obvious central pulmonary embolism on chest CTA. Acute alcohol intoxication, serum EtOH was 407 on arrival History of alcoholism History of alcohol withdrawal and delirium tremens Alcoholic liver disease and ascites Thrombocytopenia, likely related to liver disease Current smoker Plan: Monitor tachycardia Cardiac Rocephin Agree on putting the patient on beta federica patient started on metoprolol Monitor heart rate Paracentesis by interventional radiology Watch for any signs of delirium tremens We'll continue to follow Poor prognosis based on the above-mentioned comorbidities
--- NOTE | 2023-02-20 16:07 | CA ---
Transthoracic Echo Report Name: Carlos Scott Age: 52 Gender: M : 1970 Exam Date: 02/20/2023 10:32 Exam Location: [facility] Ht (in): 75 Wt (lb): 175 Ordering Physician: Luis Aleman MD Attending/Referring Phys: Manager Audio Deanna Julien RDCS Procedure CPT: Indications: pleural effusion Cardiac Hx: Technical Quality: Fair Contrast 1: Total Dose (mL): Contrast 2: Total Dose (mL): MEASUREMENTS (Male / Female) Normal Values 2D ECHO LV Diastolic Diameter PLAX 2.9 cm 4.2 - 5.9 / 3.9 - 5.3 cm LV Systolic Diameter PLAX 2.3 cm IVS Diastolic Thickness 1.6 cm 0.6 - 1.0 / 0.6 - 0.9 cm LVPW Diastolic Thickness 1.3 cm 0.6 - 1.0 / 0.6 - 0.9 cm LV Relative Wall Thickness 1.0 DOPPLER AV Peak Velocity 110.4 cm/s AV Peak Gradient 4.9 mmHg TV Peak Velocity 233.8 cm/s FINDINGS Left Ventricle Limited study. Tachycardia. Moderately increased left ventricular wall thickness. Normal left ventricular wall motion. Normal left ventricular diastolic filling pattern. Normal left ventricular systolic function with no obvious regional wall motion abnormalities. Left ventricular ejection fraction is estimated at 50-55 %. Right Ventricle Normal right ventricular size and function. Right ventricular systolic pressure within normal limits. Right Atrium Normal right atrial size. Left Atrium Normal left atrial size. Mitral Valve No mitral stenosis, regurgitation or prolapse. Aortic Valve No aortic stenosis. No aortic regurgitation. Tricuspid Valve Structurally normal tricuspid valve. Mild tricuspid regurgitation. Pulmonic Valve Structurally normal pulmonic valve. Pericardium No pericardial effusion. Pleural effusion. Aorta Normal size aortic root and proximal ascending aorta. CONCLUSIONS Limited 2-D echo Moderate increased left ventricular wall thickness Left ventricular ejection fraction 5055% Normal right ventricular size and function Mild tricuspid regurgitation Large pleural effusion No pericardial effusion Previewed by: Dr. Román Muñoz DO (Electronically Signed) Final Date: 20 February 2023 16:06
[2023-02-21] MEDS: LORazepam 2 MG/ML INJ IV PRN (03:22)
[2023-02-21 08:28] LABS: Anisocytosis Slight; HCT 35.9 % (39.0-53.0); HGB 11.9 gm/dL (13.0-17.5); MCH 33.3 pg (25.0-35.0); MCHC 33.1 g/dL (31.0-37.0); MCV 100.8 fL (80.0-100.0); Macrocytosis Slight; Mean Platelet Volume 10.1; RBC 3.56 m/uL (4.30-5.90); RDW 17.4 % (11.5-15.5); WBC 5.3 k/uL (3.8-10.6)
[2023-02-21 08:31] LABS: Platelet Count 30 k/uL (150-450)
[2023-02-21] MEDS: FUROSEMIDE 10 MG/ML 4 ML VIAL IV SCH ×2 (08:51→20:36)
[2023-02-21 08:52] LABS: ALT 39 U/L (4-49); AST 94 U/L (17-59); African American GFR (CKD) >90 (>60 ml/min/1.73 sqM); Albumin 2.7 g/dL (3.5-5.0); Albumin/Globulin Ratio 0.5; Alkaline Phosphatase 321 U/L (38-126); Anion Gap 4 mmol/L; Blood Urea Nitrogen 12 mg/dL (9-20); Calcium 7.8 mg/dL (8.4-10.2); Carbon Dioxide 31 mmol/L (22-30); Chloride 95 mmol/L (98-107); Globulin 5.3 g/dL; Glucose 90 mg/dL (74-99); Non-African American GFR(CKD) >90 (>60 ml/min/1.73 sqM); Potassium 3.5 mmol/L (3.5-5.1); Sodium 130 mmol/L (137-145); Total Bilirubin 3.8 mg/dL (0.2-1.3)
[2023-02-21] MEDS: METOPROLOL TARTRATE 12.5 MG TAB PO SCH ×2 (09:24→20:36)
[2023-02-21] MEDS: THIAMINE 100 MG TAB PO SCH (09:25)
[2023-02-21] MEDS: SPIRONOLACTONE 25 MG TAB PO SCH ×2 (09:25→20:36)
[2023-02-21] MEDS: NICOTINE 21MG/24HR PATCH TRANSDERM SCH (09:29)
--- NOTE | 2023-02-21 12:55 | P.PN ---
Subjective Progress Note Date: 02/21/23 The patient is a 52-year-old male with a PMH of alcoholic cirrhosis with ongoing alcohol abuse who presents to the emergency room with complaints of chest discomfort or shortness of breath. He underwent an extensive evaluation in the emergency room. Laboratory evaluation was remarkable for an alcohol level of 407, WBC count 6.1, hemoglobin 13, because 69, d-dimer 7.07, troponin less than 0.012, sodium 140, potassium 4.3, chloride 105, CO2 21, BUN 11, creatinine 0.5, glucose 127. CT chest revealed a large right-sided pleural effusion appearing loculated causing collapse of the right lung. There was no evidence for pulmonary embolism. Patient started on Lasix 40 mg IV twice a day. Aldactone was restarted. Pulmonology was consulted and patient underwent thoracentesis with removal of 2400 mL of fluid. He was empirically started on Rocephin for treatment of SBP. Interventional radiology was consulted for paracentesis. Unfortunately, this procedure was delayed due to a platelet count of 35. 02/20 Patient was seen and examined. No acute events overnight. Patient reports no complaints. He has been tachycardic with heart rate in the 130-140s. CBC today shows Hg 12.9 and platelet count of 35.CMP shows Na 132. K 3.4, Cl 96, Cr 0.46, Ca 7.9, T. Bili 3.8, AST 114, alk phos 376, albumin 3.0. 02/21 Patient was seen and examined. Sleeping comfortably. Paracentesis held yesterday due to thrombocytopenia. Plans to recieve platelets along with paracentesis today. CBC shows hemoglobin of 11.9 and MCV 100.8 with platelet count of 30. CMP shows sodium of 1:30, chloride of 95, bicarb of 31, creatinine of 0.57, calcium is 1.8, total bilirubin of 3.8, AST of 94, alkaline phosphatase of 321 and albumin of 2.7. Currently on 2L NC saturating low 90s. Echo shows EF 50-55% with moderate LVH. Vital signs reviewed General: Jaundiced appearing male, no distress, appears at stated age, normal w [age] Derm: no unusual rashes/lesions, warm Head: atraumatic, normocephalic, symmetric Eyes: EOMI, no lid lag, scleral icterus noted ENT: Nose and ears atraumatic Cardiovascular: Tachycardic, no murmur, no edema Lungs: Decreased BS bilateral, no rhonchi, no rales, no accessory muscle use Abdominal: Distended, nontender to palpation, no guarding Ext: muscle strength 5 out of 5 in all 4 extremities grossly, no gross muscle atrophy, no contractures, Neuro: no gross focal neuro deficits Psych: Alert, oriented, appropriate affect Acute hypoxic respiratory failure likely secondary to large R sided pleural effusion Alcoholic cirrhosis Ongoing alcohol abuse Thrombocytopenia Macrocytosis Hyponatremia Based on my assessment of this patient, this patient meets a high complexity level of care. Patient has an acute diagnosis of acute hypoxic respiratory failure secondary to large loculated right-sided pleural effusion that poses a threat to life or bodily function. He underwent thoracentesis on 02/19 with removal 2400 mL of fluid. Plans for paracentesis today with interventional radiology. Plans to transfuse 1 unit platelet today. Continue Lasix 40 mg IV twice a day. Daily monitoring of BMP as Lasix is nephrotoxic. Aldactone 50 mg by mouth twice a day. Continue metoprolol 12.5 mg by mouth twice a day for tachycardia. Continue CIWA protocol with Ativan as needed. Telemetry monitoring and supplemental O2 to maintain O2 saturation > 92%. SCDs for DVT prophylaxis. FULL CODE. I have reviewed the following [facility]ap consultant notes: I have reviewed the results of the following tests: CBC, CMP, Echocardiogram as above. I have ordered the following tests: Repeat CBC and CMP tomorrow morning. I have discussed the care of this patient with the following independent historian: I have independently interpreted the following test below: I have discussed the management of this patient with the following physician: Objective - Vital Signs Vital signs: Vital Signs Temp 97.9 F 02/21/23 12:48 Pulse 102 H 02/21/23 12:48 Resp 16 02/21/23 12:48 BP 106/69 02/21/23 12:48 Pulse Ox 92 L 02/21/23 08:36 FiO2 Intake & Output 02/20/23 02/21/23 02/21/23 18:59 06:59 18:59 Intake Total 650 0 Balance 650 0 Intake: Oral 650 Blood Product 0 Unit 0 Other: Voiding Method Urinal Urinal # Voids 5 1 - Labs CBC & Chem 7: 02/21/23 08:09 02/21/23 08:09 Labs: Abnormal Lab Results - Last 24 Hours (Table) 02/21/23 02/21/23 Range/Units 08:09 08:09 RBC 3.56 L (4.30-5.90) m/uL Hgb 11.9 L (13.0-17.5) gm/dL Hct 35.9 L (39.0-53.0) % MCV 100.8 H (80.0-100.0) fL RDW 17.4 H (11.5-15.5) % Plt Count 30 L (150-450) k/uL Sodium 130 L (137-145) mmol/L Chloride 95 L (98-107) mmol/L Carbon Dioxide 31 H (22-30) mmol/L Creatinine 0.57 L (0.66-1.25) mg/dL Calcium 7.8 L (8.4-10.2) mg/dL Total Bilirubin 3.8 H (0.2-1.3) mg/dL AST 94 H (17-59) U/L Alkaline Phosphatase 321 H (38-126) U/L Albumin 2.7 L (3.5-5.0) g/dL Microbiology - Last 24 Hours (Table) 02/19/23 12:15 Gram Stain - Preliminary Pleural Fluid Body Fluid Culture - Preliminary
--- NOTE | 2023-02-21 13:53 | US ---
Ultrasound-guided paracentesis. DATE OF EXAM: 02/21/2023 CLINICAL HISTORY: Ascites The procedure was discussed with the patient. The risks, complications, benefits, and alternatives we re discussed and any questions were answered. Informed consent was obtained. The patient was placed s upine on the ultrasound table and prepped and draped in the usual sterile fashion. All elements of maximal barrier technique were utilized. Under ultrasound guidance, access into the right lower quadrant was obtained, via the paracentesis catheter system and direct ultrasound guidanc e. Approximately 2.5 liters of straw-colored fluid was removed. Sample sent to pathology for analysis. T he patient was stable throughout the procedure and remained stable upon discharge from Department of Radiology. IMPRESSION: Successful paracentesis under ultrasound guidance.
--- NOTE | 2023-02-21 15:26 | P.PN ---
Subjective Progress Note Date: 02/21/23 I am seeing this patient in new consultation today 02/19/2023 for a large right- sided pleural effusion. Patient is a 52-year-old white male with past medical history significant for alcoholism, drinks approximately 1 pint per day, liver cirrhosis and ascites requiring frequent paracentesis, and is a current smoker. Patient came into the emergency room last night complaining of shortness of breath and chest pain that radiated from the left side of his chest to the right. Patient was intoxicated on arrival with a serum EtOH level of 407. Patient does have large volume ascites, and his last paracentesis was reportedly 3 weeks ago. Chest x-ray on arrival shows a large sized right pleural effusion. Patient's d-dimer was elevated on arrival, probably related to the patient's liver disease. I did review the patient's chest CTA, and there is no obvious central pulmonary embolism. There was redemonstration of the large right pleural effusion. He denies taking any anticoagulants. Patient is currently resting in bed, on 6 L nasal cannula, in no acute distress. He denies any fever, chills, cough, sick contacts. He reports occasional palpitations. Denies any lower extremity swelling, orthopnea, PND, syncope. Troponin was negative 1. ECG on arrival showed no obvious evidence of acute ischemic changes. CBC shows a WBC count of 6.1, hemoglobin 13, hematocrit 39, platelets low at 69. INR is 1.5. CMP shows a sodium 140, potassium 4.3, chloride 105, serum bicarb 21, BUN 11, creatinine 0.51, glucose 127. LFTs are mildly elevated. Lipase was mildly elevated at 384. Patient is currently on the CIWA protocol, no obvious signs of withdrawal. No need for ICU admission currently. He is also receiving vitamin B1 supplementation. Vital signs are stable. On today's evaluation of 02/18/2023, the patient is not having any respiratory distress. He has developed some sinus tachycardia which could be a reflection of either an underlying infection such as SBP or early signs of delirium tremens. The patient was covered with IV Rocephin. The patient was started on metoprolol 12.5 mg 2 twice a day. He is currently on 3 L of oxygen by nasal cannula. Heart rate is between 09/21/1931. The abdomen is extensive. A total of 4.2 with hemoglobin 12.9 and platelet count of 35. BUN is 10 with a creatinine of 0.4. Sodium is at 1:30 with a potassium level of 3.4 and chloride is 96 with a bicarb of 28. Is quite debilitated. On 02/21/2023, the patient is doing well, stable, less tachycardic, currently on IV Rocephin and the patient was on metoprolol 12.5 mg twice a day. No signs of any acute lesion Primus. The patient remains on thiamine. The patient CIWA protocol. A paracentesis is also to be done today. Remains on Lasix 40 mg IV every 12 hours. Remains on Aldactone. The blood work from today shows a little resistant of 5.3 with a hemoglobin 11.6 and a platelet count of 30. BUN is at 12 with a creatinine of 0.5 and a sodium level is at 1:30. Objective - Vital Signs Vital signs: Vital Signs Temp 97.8 F 02/21/23 07:35 Pulse 106 H 02/21/23 07:35 Resp 18 02/21/23 07:35 BP 121/82 02/21/23 07:35 Pulse Ox 92 L 02/21/23 08:36 FiO2 Intake & Output 02/20/23 02/21/23 02/21/23 18:59 06:59 18:59 Intake Total 650 Balance 650 Intake: Oral 650 Other: Voiding Method Urinal Urinal # Voids 5 1 - Exam GENERAL EXAM: Alert, 52-year-old white male, comfortable in no apparent distress. HEAD: Normocephalic and atraumatic EYES: Normal reaction of pupils, equal size. NOSE: Clear with pink turbinates. THROAT: No erythema or exudates. NECK: No masses, no JVD. CHEST: No chest wall deformity. LUNGS: Diminished right sided lung sounds. no crackles, wheeze, rhonchi or dullness. On 3 L/m nasal cannula. No conversational dyspnea or accessory muscle use.. CVS: S1 and S2 normal with no audible murmur, regular rhythm. No extra heart sounds ABDOMEN: There is significant large volume ascites. Active bowel sounds, no guarding or rigidity. SPINE: No scoliosis or deformity SKIN: No rashes CENTRAL NERVOUS SYSTEM: No focal deficits, tone is normal in all 4 extremities. Mild tremor appreciated with arm extension. EXTREMITIES: There is no peripheral edema, clubbing, or cyanosis. Peripheral pulses are intact. - Labs CBC & Chem 7: 02/21/23 08:09 02/21/23 08:09 Labs: Abnormal Lab Results - Last 24 Hours (Table) 02/21/23 02/21/23 Range/Units 08:09 08:09 RBC 3.56 L (4.30-5.90) m/uL Hgb 11.9 L (13.0-17.5) gm/dL Hct 35.9 L (39.0-53.0) % MCV 100.8 H (80.0-100.0) fL RDW 17.4 H (11.5-15.5) % Plt Count 30 L (150-450) k/uL Sodium 130 L (137-145) mmol/L Chloride 95 L (98-107) mmol/L Carbon Dioxide 31 H (22-30) mmol/L Creatinine 0.57 L (0.66-1.25) mg/dL Calcium 7.8 L (8.4-10.2) mg/dL Total Bilirubin 3.8 H (0.2-1.3) mg/dL AST 94 H (17-59) U/L Alkaline Phosphatase 321 H (38-126) U/L Albumin 2.7 L (3.5-5.0) g/dL Microbiology - Last 24 Hours (Table) 02/19/23 12:15 Gram Stain - Preliminary Pleural Fluid Body Fluid Culture - Preliminary Assessment and Plan Assessment: Acute hypoxemic respiratory failure, currently on 4 L/m nasal cannula, related to large right-sided pleural effusion, and the patient underwent a thoracentesis with a total of 2.4 L of fluid being removed, currently the patient on 4 L of oxygen nasal cannula Pneumothorax ex vacuo the right upper lung field in the order of 5-10% Sinus tachycardia, rule out underlying SBP and the patient is currently on IV Rocephin. Rule out early signs of delirium tremens, the tachycardia is improved and the patient is currently on beta blockers. Chest pain, acute coronary syndrome ruled out Elevated d-dimer, no obvious central pulmonary embolism on chest CTA. Acute alcohol intoxication, serum EtOH was 407 on arrival History of alcoholism History of alcohol withdrawal and delirium tremens Alcoholic liver disease and ascites Thrombocytopenia, likely related to liver disease Current smoker Plan: Monitor tachycardia, less tachycardic on today's evaluation Continue IV Rocephin Continue metoprolol Monitor heart rate Paracentesis by interventional radiology today Watch for any signs of delirium tremens We'll continue to follow Poor prognosis based on the above-mentioned comorbidities
[2023-02-22 03:14] LABS: Glucose, BF Source Ascites; Glucose, Body Fluid 90 mg/dL
[2023-02-22 03:15] LABS: Amylase,Body Fluid 16 U/L; LDH, Body Fluid Source Ascites; T. Protein, Body Fluid Source Ascites; Total Protein, Body Fluid 1260 mg/dL
[2023-02-22 04:36] LABS: Appearance,BF Clear (Clear)
[2023-02-22] MEDS: FUROSEMIDE 10 MG/ML 4 ML VIAL IV SCH (08:35)
[2023-02-22] MEDS: SPIRONOLACTONE 25 MG TAB PO SCH ×2 (08:44→20:45)
[2023-02-22] MEDS: THIAMINE 100 MG TAB PO SCH (08:44)
[2023-02-22] MEDS: METOPROLOL TARTRATE 12.5 MG TAB PO SCH ×2 (08:44→20:45)
[2023-02-22] MEDS: NICOTINE 21MG/24HR PATCH TRANSDERM SCH (08:44)
[2023-02-22 11:07] LABS: Anisocytosis Slight; HCT 38.3 % (39.0-53.0); HGB 12.5 gm/dL (13.0-17.5); MCH 33.7 pg (25.0-35.0); MCHC 32.8 g/dL (31.0-37.0); MCV 102.8 fL (80.0-100.0); Macrocytosis Moderate; Mean Platelet Volume 9.2; RBC 3.72 m/uL (4.30-5.90); RDW 17.2 % (11.5-15.5); WBC 5.6 k/uL (3.8-10.6)
[2023-02-22 11:10] LABS: Platelet Count 39 k/uL (150-450)
[2023-02-22 11:20] LABS: ALT 37 U/L (4-49); AST 85 U/L (17-59); African American GFR (CKD) >90 (>60 ml/min/1.73 sqM); Albumin 2.8 g/dL (3.5-5.0); Albumin/Globulin Ratio 0.5; Alkaline Phosphatase 318 U/L (38-126); Anion Gap 4 mmol/L; Blood Urea Nitrogen 13 mg/dL (9-20); Calcium 7.8 mg/dL (8.4-10.2); Carbon Dioxide 35 mmol/L (22-30); Chloride 90 mmol/L (98-107); Globulin 5.6 g/dL; Glucose 133 mg/dL (74-99); Non-African American GFR(CKD) >90 (>60 ml/min/1.73 sqM); Potassium 3.2 mmol/L (3.5-5.1); Sodium 129 mmol/L (137-145); Total Bilirubin 2.8 mg/dL (0.2-1.3); Total Protein 8.4 g/dL (6.3-8.2)
--- NOTE | 2023-02-22 11:40 | XR ---
EXAMINATION TYPE: XR chest 1V portable DATE OF EXAM: 02/22/2023 HISTORY: Shortness of breath. COMPARISON: 02/19/2023 TECHNIQUE: Single view of the chest is submitted. FINDINGS: Demonstrated are scattered senescent parenchymal change. Complete opacification right hemithorax significantly increased from prior study consistent with incr easing pleural effusion. Left lung is clear. The heart is stable. Hilar and mediastinal structures are within normal limits. Degenerative changes are seen of the dorsal spine. IMPRESSION: 1. Complete opacification right hemithorax significantly increased from prior study consistent with increasing pleural effusion.
--- NOTE | 2023-02-22 14:08 | P.PN ---
Subjective Progress Note Date: 02/22/23 I am seeing this patient in new consultation today 02/19/2023 for a large right- sided pleural effusion. Patient is a 52-year-old white male with past medical history significant for alcoholism, drinks approximately 1 pint per day, liver cirrhosis and ascites requiring frequent paracentesis, and is a current smoker. Patient came into the emergency room last night complaining of shortness of breath and chest pain that radiated from the left side of his chest to the right. Patient was intoxicated on arrival with a serum EtOH level of 407. Patient does have large volume ascites, and his last paracentesis was reportedly 3 weeks ago. Chest x-ray on arrival shows a large sized right pleural effusion. Patient's d-dimer was elevated on arrival, probably related to the patient's liver disease. I did review the patient's chest CTA, and there is no obvious central pulmonary embolism. There was redemonstration of the large right pleural effusion. He denies taking any anticoagulants. Patient is currently resting in bed, on 6 L nasal cannula, in no acute distress. He denies any fever, chills, cough, sick contacts. He reports occasional palpitations. Denies any lower extremity swelling, orthopnea, PND, syncope. Troponin was negative 1. ECG on arrival showed no obvious evidence of acute ischemic changes. CBC shows a WBC count of 6.1, hemoglobin 13, hematocrit 39, platelets low at 69. INR is 1.5. CMP shows a sodium 140, potassium 4.3, chloride 105, serum bicarb 21, BUN 11, creatinine 0.51, glucose 127. LFTs are mildly elevated. Lipase was mildly elevated at 384. Patient is currently on the CIWA protocol, no obvious signs of withdrawal. No need for ICU admission currently. He is also receiving vitamin B1 supplementation. Vital signs are stable. On today's evaluation of 02/18/2023, the patient is not having any respiratory distress. He has developed some sinus tachycardia which could be a reflection of either an underlying infection such as SBP or early signs of delirium tremens. The patient was covered with IV Rocephin. The patient was started on metoprolol 12.5 mg 2 twice a day. He is currently on 3 L of oxygen by nasal cannula. Heart rate is between 09/21/1929. The abdomen is extensive. A total of 4.2 with hemoglobin 12.9 and platelet count of 35. BUN is 10 with a creatinine of 0.4. Sodium is at 1:30 with a potassium level of 3.4 and chloride is 96 with a bicarb of 28. Is quite debilitated. On 02/21/2023, the patient is doing well, stable, less tachycardic, currently on IV Rocephin and the patient was on metoprolol 12.5 mg twice a day. No signs of any acute lesion Primus. The patient remains on thiamine. The patient CIWA protocol. A paracentesis is also to be done today. Remains on Lasix 40 mg IV every 12 hours. Remains on Aldactone. The blood work from today shows a little resistant of 5.3 with a hemoglobin 11.6 and a platelet count of 30. BUN is at 12 with a creatinine of 0.5 and a sodium level is at 1:30. On 02/22/2023, the patient is feeling well. The patient underwent a paracentesis yesterday and a total of 3.5 L of ascitic fluid was aspirated. The patient is currently on room air oxygen with a pulse ox of 92%. Repeat chest x- ray shows complete opacification of the right hemithorax in the pleural fluid is increased significantly. Nevertheless, despite his worsening in the right-sided pleural effusion, there is no interval worsening shortness of breath. The patient will be started at 5.6 with a hemoglobin 12.5 and a platelet count of 39. Sodium is at 129, potassium is at 3.2, BUN is at 13 with a creatinine of 0.6. Glucose is 133. Serum bicarb is at 319. The patient is currently on IV Rocephin. The patient is also on Lasix 40 mg every 12 hours and Aldactone 50 mg by mouth twice a day. Objective - Vital Signs Vital signs: Vital Signs Temp 98.6 F 02/22/23 07:13 Pulse 112 H 02/22/23 07:13 Resp 19 02/22/23 07:13 BP 119/75 02/22/23 08:35 Pulse Ox 92 L 02/22/23 07:13 FiO2 Intake & Output 02/21/23 02/22/23 02/22/23 18:59 06:59 18:59 Intake Total 536 Output Total 700 Balance 536 -700 Intake: Intake, IV Titration 50 Amount cefTRIAXone 2 gm In 50 Sodium Chloride 0.9% 50 ml @ 100 mls/hr IVPB Q24HR [facility] Rx#:[id number] Blood Product 486 Platelet Pheresis Pas 243 Psoralen Unit [id number] Output: Urine 700 Other: # Voids 3 - Exam GENERAL EXAM: Alert, 52-year-old white male, comfortable in no apparent distress. The patient is currently on room air oxygen. HEAD: Normocephalic and atraumatic EYES: Normal reaction of pupils, equal size. NOSE: Clear with pink turbinates. THROAT: No erythema or exudates. NECK: No masses, no JVD. CHEST: No chest wall deformity. LUNGS: Diminished right sided lung sounds. no crackles, wheeze, rhonchi or dullness. No conversational dyspnea or accessory muscle use.. CVS: S1 and S2 normal with no audible murmur, regular rhythm. No extra heart sounds ABDOMEN: There is significant large volume ascites. Active bowel sounds, no guarding or rigidity. SPINE: No scoliosis or deformity SKIN: No rashes CENTRAL NERVOUS SYSTEM: No focal deficits, tone is normal in all 4 extremities. Mild tremor appreciated with arm extension. EXTREMITIES: There is no peripheral edema, clubbing, or cyanosis. Peripheral pulses are intact. - Labs CBC & Chem 7: 02/22/23 10:54 02/22/23 10:54 Labs: Abnormal Lab Results - Last 24 Hours (Table) 02/22/23 02/22/23 Range/Units 10:54 10:54 RBC 3.72 L (4.30-5.90) m/uL Hgb 12.5 L (13.0-17.5) gm/dL Hct 38.3 L (39.0-53.0) % MCV 102.8 H (80.0-100.0) fL RDW 17.2 H (11.5-15.5) % Plt Count 39 L (150-450) k/uL Sodium 129 L (137-145) mmol/L Potassium 3.2 L (3.5-5.1) mmol/L Chloride 90 L (98-107) mmol/L Carbon Dioxide 35 H (22-30) mmol/L Glucose 133 H (74-99) mg/dL Calcium 7.8 L (8.4-10.2) mg/dL Total Bilirubin 2.8 H (0.2-1.3) mg/dL AST 85 H (17-59) U/L Alkaline Phosphatase 318 H (38-126) U/L Total Protein 8.4 H (6.3-8.2) g/dL Albumin 2.8 L (3.5-5.0) g/dL Microbiology - Last 24 Hours (Table) 02/19/23 12:15 Gram Stain - Preliminary Pleural Fluid Body Fluid Culture - Preliminary Assessment and Plan Assessment: Acute hypoxemic respiratory failure, currently on room air oxygen and the patient had a large right-sided pleural effusion/hepatic hydrothorax, , and the patient underwent a thoracentesis with a total of 2.4 L of fluid being removed, repeat chest x-ray from today shows persistent hepatic hydrothorax a large right-sided pleural effusion Pneumothorax ex vacuo the right upper lung field in the order of 5-10%, not seen on today's chest x-ray as the right lung is completely opacified Ascites post paracentesis and the patient has a total of 3.5 L of ascitic fluid removed Sinus tachycardia, rule out underlying SBP and the patient is currently on IV Rocephin. Rule out early signs of delirium tremens, the tachycardia is improved and the patient is currently on beta blockers. Chest pain, acute coronary syndrome ruled out Elevated d-dimer, no obvious central pulmonary embolism on chest CTA. Acute alcohol intoxication, serum EtOH was 407 on arrival History of alcoholism History of alcohol withdrawal and delirium tremens Alcoholic liver disease and ascites Thrombocytopenia, likely related to liver disease Current smoker Plan: May benefit from another thoracentesis and this was scheduled for the next 24 hours Continue metoprolol Continue IV Rocephin Review of the chest x-ray from today is consistent with a large hepatic hydrothorax Completed paracentesis Watch for any signs of delirium tremens We'll continue to follow Poor prognosis based on the above-mentioned comorbidities
[2023-02-22] MEDS ORDERED: POTASSIUM CHLORIDE ER 20 MEQ TAB.ER PO STA (14:11)
--- NOTE | 2023-02-22 14:16 | P.PN ---
Subjective Progress Note Date: 02/22/23 The patient is a 52-year-old male with a PMH of alcoholic cirrhosis with ongoing alcohol abuse who presents to the emergency room with complaints of chest discomfort or shortness of breath. He underwent an extensive evaluation in the emergency room. Laboratory evaluation was remarkable for an alcohol level of 407, WBC count 6.1, hemoglobin 13, because 69, d-dimer 7.07, troponin less than 0.012, sodium 140, potassium 4.3, chloride 105, CO2 21, BUN 11, creatinine 0.5, glucose 127. CT chest revealed a large right-sided pleural effusion appearing loculated causing collapse of the right lung. There was no evidence for pulmonary embolism. Patient started on Lasix 40 mg IV twice a day. Aldactone was restarted. Pulmonology was consulted and patient underwent thoracentesis with removal of 2400 mL of fluid. He was empirically started on Rocephin for treatment of SBP. Interventional radiology was consulted for paracentesis. Unfortunately, this procedure was delayed due to a platelet count of 35. 02/20 Patient was seen and examined. No acute events overnight. Patient reports no complaints. He has been tachycardic with heart rate in the 130-140s. CBC today shows Hg 12.9 and platelet count of 35.CMP shows Na 132. K 3.4, Cl 96, Cr 0.46, Ca 7.9, T. Bili 3.8, AST 114, alk phos 376, albumin 3.0. 02/21 Patient was seen and examined. Sleeping comfortably. Paracentesis held yesterday due to thrombocytopenia. Plans to recieve platelets along with paracentesis today. CBC shows hemoglobin of 11.9 and MCV 100.8 with platelet count of 30. CMP shows sodium of 1:30, chloride of 95, bicarb of 31, creatinine of 0.57, calcium is 1.8, total bilirubin of 3.8, AST of 94, alkaline phosphatase of 321 and albumin of 2.7. Currently on 2L NC saturating low 90s. Echo shows EF 50-55% with moderate LVH. 02/22 Patient was seen and examined. He reports his breathing to be stable. Underwent 1 units platelet transfusion along with paracentesis yesterday with removal of 2.5L fluid. CBC shows hemoglobin of 12.5, MCV of 102.8 and platelet count of 39. CMP shows sodium 129, potassium of 3.2, chloride of 90, bicarb of 35, glucose 133, total bilirubin of 2.8, AST of 85, alkaline phosphatase of 318 and albumin of 2.8. Chest x-ray shows right-sided pleural effusion, worsened since previous x-ray. Vital signs reviewed General: Jaundiced appearing male, no distress, appears at stated age, normal weight Derm: no unusual rashes/lesions, warm Head: atraumatic, normocephalic, symmetric Eyes: EOMI, no lid lag, scleral icterus noted ENT: Nose and ears atraumatic Cardiovascular: Tachycardic, no murmur, no edema Lungs: Decreased BS bilateral, no rhonchi, no rales, no accessory muscle use Abdominal: Distended, nontender to palpation, no guarding Ext: muscle strength 5 out of 5 in all 4 extremities grossly, no gross muscle atrophy, no contractures, Neuro: no gross focal neuro deficits Psych: Alert, oriented, appropriate affect Acute hypoxic respiratory failure likely secondary to large R sided pleural effusion Alcoholic cirrhosis Ongoing alcohol abuse Thrombocytopenia Macrocytosis Hyponatremia Hypokalemia Based on my assessment of this patient, this patient meets a high complexity level of care. Patient has an acute diagnosis of acute hypoxic respiratory failure secondary to large loculated right-sided pleural effusion that poses a threat to life or bodily function. He underwent thoracentesis on 02/19 with removal 2400 mL of fluid. Status post paracentesis with 2.5L fluid removal. Status post transfuse 1 unit platelet. Daily monitoring of BMP as Lasix is nephrotoxic. Aldactone 50 mg by mouth twice a day. Continue metoprolol 12.5 mg by mouth twice a day for tachycardia. Continue CIWA protocol with Ativan as needed. Telemetry monitoring and supplemental O2 to maintain O2 saturation > 92%. Replace potassium with 40 meq KCl. Discontinue Lasix IV. Start 1.5L fluid restriction. Repeat Na levels tomorrow morning. Repeat thoracentesis planned by Pulmonology. SCDs for DVT prophylaxis. FULL CODE. I have reviewed the following desktop support consultant notes: Pulmonology note reviewed as above. I have reviewed the results of the following tests: CBC, CMP as above. I have ordered the following tests: Repeat CMP tomorrow morning. I have discussed the care of this patient with the following independent historian: I have independently interpreted the following test below: CXR as above. I have discussed the management of this patient with the following physician: Objective - Vital Signs Vital signs: Vital Signs Temp 98.6 F 02/22/23 07:13 Pulse 112 H 02/22/23 07:13 Resp 19 02/22/23 07:13 BP 119/75 02/22/23 08:35 Pulse Ox 92 L 02/22/23 07:13 FiO2 Intake & Output 02/21/23 02/22/23 02/22/23 18:59 06:59 18:59 Intake Total 536 Output Total 700 Balance 536 -700 Intake: Intake, IV Titration 50 Amount cefTRIAXone 2 gm In 50 Sodium Chloride 0.9% 50 ml @ 100 mls/hr IVPB Q24HR [facility] Rx#:[id number] Blood Product 486 Platelet Pheresis Pas 243 Psoralen Unit [id number] Output: Urine 700 Other: # Voids 3 - Labs CBC & Chem 7: 02/22/23 10:54 02/22/23 10:54 Labs: Abnormal Lab Results - Last 24 Hours (Table) 02/22/23 02/22/23 Range/Units 10:54 10:54 RBC 3.72 L (4.30-5.90) m/uL Hgb 12.5 L (13.0-17.5) gm/dL Hct 38.3 L (39.0-53.0) % MCV 102.8 H (80.0-100.0) fL RDW 17.2 H (11.5-15.5) % Plt Count 39 L (150-450) k/uL Sodium 129 L (137-145) mmol/L Potassium 3.2 L (3.5-5.1) mmol/L Chloride 90 L (98-107) mmol/L Carbon Dioxide 35 H (22-30) mmol/L Glucose 133 H (74-99) mg/dL Calcium 7.8 L (8.4-10.2) mg/dL Total Bilirubin 2.8 H (0.2-1.3) mg/dL AST 85 H (17-59) U/L Alkaline Phosphatase 318 H (38-126) U/L Total Protein 8.4 H (6.3-8.2) g/dL Albumin 2.8 L (3.5-5.0) g/dL Microbiology - Last 24 Hours (Table) 02/19/23 12:15 Gram Stain - Preliminary Pleural Fluid Body Fluid Culture - Preliminary
[2023-02-23] MEDS: METOPROLOL TARTRATE 12.5 MG TAB PO SCH ×2 (08:42→20:16)
[2023-02-23] MEDS: THIAMINE 100 MG TAB PO SCH (08:42)
[2023-02-23] MEDS: SPIRONOLACTONE 25 MG TAB PO SCH ×2 (08:42→20:16)
[2023-02-23] MEDS: NICOTINE 21MG/24HR PATCH TRANSDERM SCH (08:42)
--- NOTE | 2023-02-23 10:55 | P.PN ---
Subjective Progress Note Date: 02/23/23 I am seeing this patient in new consultation today 02/19/2023 for a large right- sided pleural effusion. Patient is a 52-year-old white male with past medical history significant for alcoholism, drinks approximately 1 pint per day, liver cirrhosis and ascites requiring frequent paracentesis, and is a current smoker. Patient came into the emergency room last night complaining of shortness of breath and chest pain that radiated from the left side of his chest to the right. Patient was intoxicated on arrival with a serum EtOH level of 407. Patient does have large volume ascites, and his last paracentesis was reportedly 3 weeks ago. Chest x-ray on arrival shows a large sized right pleural effusion. Patient's d-dimer was elevated on arrival, probably related to the patient's liver disease. I did review the patient's chest CTA, and there is no obvious central pulmonary embolism. There was redemonstration of the large right pleural effusion. He denies taking any anticoagulants. Patient is currently resting in bed, on 6 L nasal cannula, in no acute distress. He denies any fever, chills, cough, sick contacts. He reports occasional palpitations. Denies any lower extremity swelling, orthopnea, PND, syncope. Troponin was negative 1. ECG on arrival showed no obvious evidence of acute ischemic changes. CBC shows a WBC count of 6.1, hemoglobin 13, hematocrit 39, platelets low at 69. INR is 1.5. CMP shows a sodium 140, potassium 4.3, chloride 105, serum bicarb 21, BUN 11, creatinine 0.51, glucose 127. LFTs are mildly elevated. Lipase was mildly elevated at 384. Patient is currently on the CIWA protocol, no obvious signs of withdrawal. No need for ICU admission currently. He is also receiving vitamin B1 supplementation. Vital signs are stable. On today's evaluation of 02/18/2023, the patient is not having any respiratory distress. He has developed some sinus tachycardia which could be a reflection of either an underlying infection such as SBP or early signs of delirium tremens. The patient was covered with IV Rocephin. The patient was started on metoprolol 12.5 mg 2 twice a day. He is currently on 3 L of oxygen by nasal cannula. Heart rate is between 09/21/1931. The abdomen is extensive. A total of 4.2 with hemoglobin 12.9 and platelet count of 35. BUN is 10 with a creatinine of 0.4. Sodium is at 1:30 with a potassium level of 3.4 and chloride is 96 with a bicarb of 28. Is quite debilitated. On 02/21/2023, the patient is doing well, stable, less tachycardic, currently on IV Rocephin and the patient was on metoprolol 12.5 mg twice a day. No signs of any acute lesion Primus. The patient remains on thiamine. The patient CIWA protocol. A paracentesis is also to be done today. Remains on Lasix 40 mg IV every 12 hours. Remains on Aldactone. The blood work from today shows a little resistant of 5.3 with a hemoglobin 11.6 and a platelet count of 30. BUN is at 12 with a creatinine of 0.5 and a sodium level is at 1:30. On 02/22/2023, the patient is feeling well. The patient underwent a paracentesis yesterday and a total of 3.5 L of ascitic fluid was aspirated. The patient is currently on room air oxygen with a pulse ox of 92%. Repeat chest x- ray shows complete opacification of the right hemithorax in the pleural fluid is increased significantly. Nevertheless, despite his worsening in the right-sided pleural effusion, there is no interval worsening shortness of breath. The patient will be started at 5.6 with a hemoglobin 12.5 and a platelet count of 39. Sodium is at 129, potassium is at 3.2, BUN is at 13 with a creatinine of 0.6. Glucose is 133. Serum bicarb is at 319. The patient is currently on IV Rocephin. The patient is also on Lasix 40 mg every 12 hours and Aldactone 50 mg by mouth twice a day. On today's evaluation of 02/23/2023, the patient is stable on 3 L of oxygen by nasal cannula. As noted, the chest x-ray from yesterday shows complete opacification of the right lung and the patient is going to need another thoracentesis on the right. Remains on Lasix and Aldactone. Is producing excellent urine output. He underwent a paracentesis. The ascitic fluid and the pleural fluid culture were both negative. Objective - Vital Signs Vital signs: Vital Signs Temp 98 F 02/23/23 07:29 Pulse 105 H 02/23/23 07:40 Resp 17 02/23/23 07:40 BP 110/75 02/23/23 07:29 Pulse Ox 95 02/23/23 08:56 FiO2 Intake & Output 02/22/23 02/23/23 02/23/23 18:59 06:59 18:59 Other: Voiding Method Urinal Bedside Commode Urinal # Voids 3 1 # Bowel Movements 1 1 - Exam GENERAL EXAM: Alert, 52-year-old white male, comfortable in no apparent distress. The patient is currently on 3 L of oxygen by nasal cannula HEAD: Normocephalic and atraumatic EYES: Normal reaction of pupils, equal size. NOSE: Clear with pink turbinates. THROAT: No erythema or exudates. NECK: No masses, no JVD. CHEST: No chest wall deformity. LUNGS: Diminished right sided lung sounds. no crackles, wheeze, rhonchi or dullness. No conversational dyspnea or accessory muscle use.. CVS: S1 and S2 normal with no audible murmur, regular rhythm. No extra heart sounds ABDOMEN: There is significant large volume ascites. Active bowel sounds, no guarding or rigidity. SPINE: No scoliosis or deformity SKIN: No rashes CENTRAL NERVOUS SYSTEM: No focal deficits, tone is normal in all 4 extremities. Mild tremor appreciated with arm extension. EXTREMITIES: There is no peripheral edema, clubbing, or cyanosis. Peripheral pulses are intact. - Labs CBC & Chem 7: 02/22/23 10:54 02/22/23 10:54 Labs: Abnormal Lab Results - Last 24 Hours (Table) 02/22/23 02/22/23 Range/Units 10:54 10:54 RBC 3.72 L (4.30-5.90) m/uL Hgb 12.5 L (13.0-17.5) gm/dL Hct 38.3 L (39.0-53.0) % MCV 102.8 H (80.0-100.0) fL RDW 17.2 H (11.5-15.5) % Plt Count 39 L (150-450) k/uL Sodium 129 L (137-145) mmol/L Potassium 3.2 L (3.5-5.1) mmol/L Chloride 90 L (98-107) mmol/L Carbon Dioxide 35 H (22-30) mmol/L Glucose 133 H (74-99) mg/dL Calcium 7.8 L (8.4-10.2) mg/dL Total Bilirubin 2.8 H (0.2-1.3) mg/dL AST 85 H (17-59) U/L Alkaline Phosphatase 318 H (38-126) U/L Total Protein 8.4 H (6.3-8.2) g/dL Albumin 2.8 L (3.5-5.0) g/dL Microbiology - Last 24 Hours (Table) 02/21/23 13:26 Gram Stain - Preliminary Ascites Fluid Body Fluid Culture - Preliminary 02/19/23 12:15 Gram Stain - Preliminary Pleural Fluid Body Fluid Culture - Preliminary Assessment and Plan Assessment: Acute hypoxemic respiratory failure, currently on room air oxygen and the patient had a large right-sided pleural effusion/hepatic hydrothorax, , and the patient underwent a thoracentesis with a total of 2.4 L of fluid being removed, repeat chest x-ray from today shows persistent hepatic hydrothorax a large right-sided pleural effusion. The repeat thoracentesis to be done today Pneumothorax ex vacuo the right upper lung field in the order of 5-10%, not seen on today's chest x-ray as the right lung is completely opacified Ascites post paracentesis and the patient has a total of 3.5 L of ascitic fluid removed Sinus tachycardia, rule out underlying SBP and the patient is currently on IV Rocephin. Rule out early signs of delirium tremens, the tachycardia is improved and the patient is currently on beta blockers. Chest pain, acute coronary syndrome ruled out Elevated d-dimer, no obvious central pulmonary embolism on chest CTA. Acute alcohol intoxication, serum EtOH was 407 on arrival History of alcoholism History of alcohol withdrawal and delirium tremens Alcoholic liver disease and ascites Thrombocytopenia, likely related to liver disease Current smoker Plan: Do not a thoracentesis on the right Oral Lasix Oral Aldactone Continue metoprolol Continue IV Rocephin Review of the chest x-ray from today is consistent with a large hepatic hydrothorax Completed paracentesis Watch for any signs of delirium tremens We'll continue to follow Poor prognosis based on the above-mentioned comorbidities
--- NOTE | 2023-02-23 12:06 | XR ---
EXAMINATION TYPE: XR chest 1V portable DATE OF EXAM: 02/23/2023 HISTORY: Status post thoracentesis on the right. COMPARISON: 02/22/2023 TECHNIQUE: Single view of the chest is submitted. FINDINGS: Marked diminution in right-sided pleural effusion. There is small residual right-sided pleural effusi on and right perihilar and right lower lobe atelectasis and/or infiltrate. No evidence for pneumothor ax. The heart is stable. Hilar and mediastinal structures are within normal limits. Degenerative changes are seen of the dorsal spine. IMPRESSION: 1. Marked diminution in right-sided pleural effusion. There is small residual right-sided pleural ef fusion and right perihilar and right lower lobe atelectasis and/or infiltrate. No evidence for pneumo thorax.
--- NOTE | 2023-02-23 12:57 | P.PCN ---
Date of Procedure: 02/23/23 Preoperative Diagnosis: Right-sided pleural effusion Postoperative Diagnosis: Right-sided pleural effusion Procedure(s) Performed: Right-sided thoracentesis Anesthesia: local Surgeon: Camila Pugh Estimated Blood Loss (ml): 0 Pathology: none sent Disposition: same day Operative Findings: A time out was performed and the chest x-ray was reviewed, the appropriate side was confirmed and marked. My hands were washed immediately prior to the procedure. I wore a surgical cap, mask with protective eyewear, sterile gown and sterile gloves throughout the procedure. The patient was prepped and draped in a sterile manner using chlorhexidine scrub after the appropriate level was percussed and confirmed by ultrasound. 1% lidocaine was used to anesthesize the skin, subcutaneous tissue, superior aspect of the rib periosteum and parietal pleura. A finder needle was then introduced over the superior aspect of the rib to locate the pleural fluid; 2colored fluid was aspirated at a depth of approximately 2 cm. A 10-blade scalpel was used to russel the skin at the insertion site. The [id number] needle was then introduced through the skin incision into the pleural space using negative aspiration pressure and the red colometric indicator to confirm appropriate positioning of the needle. The th oracentesis catheter was then threaded without difficulty. 1800 ml of turbid colored fluid was removed without difficulty. The catheter was then removed. No immediate complications were noted during the procedure. A post-procedure chest x-ray is pending at the time of this note. The fluid will not be sent for studies. Estimated blood loss is 0cc
[2023-02-23] MEDS: ACETAMINOPHEN TAB 500 MG TAB PO PRN (14:06)
--- NOTE | 2023-02-23 14:30 | P.PN ---
Subjective Progress Note Date: 02/23/23 The patient is a 52-year-old male with a PMH of alcoholic cirrhosis with ongoing alcohol abuse who presents to the emergency room with complaints of chest discomfort or shortness of breath. He underwent an extensive evaluation in the emergency room. Laboratory evaluation was remarkable for an alcohol level of 407, WBC count 6.1, hemoglobin 13, because 69, d-dimer 7.07, troponin less than 0.012, sodium 140, potassium 4.3, chloride 105, CO2 21, BUN 11, creatinine 0.5, glucose 127. CT chest revealed a large right-sided pleural effusion appearing loculated causing collapse of the right lung. There was no evidence for pulmonary embolism. Patient started on Lasix 40 mg IV twice a day. Aldactone was restarted. Pulmonology was consulted and patient underwent thoracentesis with removal of 2400 mL of fluid. He was empirically started on Rocephin for treatment of SBP. Interventional radiology was consulted for paracentesis. Unfortunately, this procedure was delayed due to a platelet count of 35. 02/20 Patient was seen and examined. No acute events overnight. Patient reports no complaints. He has been tachycardic with heart rate in the 130-140s. CBC today shows Hg 12.9 and platelet count of 35.CMP shows Na 132. K 3.4, Cl 96, Cr 0.46, Ca 7.9, T. Bili 3.8, AST 114, alk phos 376, albumin 3.0. 02/21 Patient was seen and examined. Sleeping comfortably. Paracentesis held yesterday due to thrombocytopenia. Plans to recieve platelets along with paracentesis today. CBC shows hemoglobin of 11.9 and MCV 100.8 with platelet count of 30. CMP shows sodium of 130, chloride of 95, bicarb of 31, creatinine of 0.57, calcium is 1.8, total bilirubin of 3.8, AST of 94, alkaline phosphatase of 321 and albumin of 2.7. Currently on 2L NC saturating low 90s. Echo shows EF 50-55% with moderate LVH. 02/22 Patient was seen and examined. He reports his breathing to be stable. Underwent 1 units platelet transfusion along with paracentesis yesterday with removal of 2.5L fluid. CBC shows hemoglobin of 12.5, MCV of 102.8 and platelet count of 39. CMP shows sodium 129, potassium of 3.2, chloride of 90, bicarb of 35, glucose 133, total bilirubin of 2.8, AST of 85, alkaline phosphatase of 318 and albumin of 2.8. Chest x-ray shows right-sided pleural effusion, worsened since previous x-ray. 02/23 Patient was seen and examined. Bedside thoracentesis done today by Dr. Pugh with removal of 1.8L fluid. Nursing reports patient had a syncopal episode soon after the paracentesis. No head trauma. BP was low at 72/46 which has since improved to SBP in the 100s. He is currently on 4L NC. CBC and CMP p ending today. CXR post procedure shows significantly improved right sided pleural effusion. Vital signs reviewed General: Jaundiced appearing male, no distress, appears at stated age, normal weight Derm: no unusual rashes/lesions, warm Head: atraumatic, normocephalic, symmetric Eyes: EOMI, no lid lag, scleral icterus noted ENT: Nose and ears atraumatic Cardiovascular: Tachycardic, no murmur, no edema Lungs: Decreased BS bilateral, no rhonchi, no rales, no accessory muscle use Abdominal: Distended, nontender to palpation, no guarding Ext: muscle strength 5 out of 5 in all 4 extremities grossly, no gross muscle atrophy, no contractures, Neuro: no gross focal neuro deficits Psych: Alert, oriented, appropriate affect Syncope Acute hypoxic respiratory failure likely secondary to large R sided pleural effusion Alcoholic cirrhosis Ongoing alcohol abuse Thrombocytopenia Macrocytosis Hyponatremia Hypokalemia Based on my assessment of this patient, this patient meets a high complexity level of care. Patient has an acute diagnosis of acute hypoxic respiratory failure secondary to large loculated right-sided pleural effusion that poses a threat to life or bodily function. He underwent thoracentesis on 02/19 with removal 2400 mL of fluid. Underwent paracentesis with 2.5L fluid removal on 02/21 with transfuse 1 unit platelet. Underwent thoracentesis with removal of 1800 ml of fluid. A ldactone 50 mg by mouth twice a day. Continue metoprolol 12.5 mg by mouth twice a day for tachycardia. Continue CIWA protocol with Ativan as needed. Telemetry monitoring and supplemental O2 to maintain O2 saturation > 92%. Syncopal episode and hypotension likely related to drop in cardiac output after thoracentesis. He has significantly improved when re-evaluated in the afternoon with SBP in the 100s. Replace potassium with 40 meq KCl. Start 1.5L fluid restriction. Repeat BMP pending. Pulmonology on board. SCDs for DVT prophylaxis. FULL CODE. I have reviewed the following energy consultant notes: Pulmonology and procedure note reviewed as above. I have reviewed the results of the following tests: I have ordered the following tests: Repeat CMP and CBC tomorrow morning. CBC and CMP pending for today. I have discussed the care of this patient with the following independent historian: I have independently interpreted the following test below: CXR as above. I have discussed the management of this patient with the following physician: Objective - Vital Signs Vital signs: Vital Signs Temp 98 F 02/23/23 07:29 Pulse 105 H 02/23/23 07:40 Resp 17 02/23/23 07:40 BP 110/75 02/23/23 07:29 Pulse Ox 95 02/23/23 08:56 FiO2 Intake & Output 02/22/23 02/23/23 02/23/23 18:59 06:59 18:59 Other: Voiding Method Urinal Bedside Commode Urinal # Voids 3 1 # Bowel Movements 1 1 - Labs CBC & Chem 7: 02/22/23 10:54 02/22/23 10:54 Labs: Microbiology - Last 24 Hours (Table) 02/21/23 13:26 Gram Stain - Preliminary Ascites Fluid Body Fluid Culture - Preliminary 02/19/23 12:15 Gram Stain - Preliminary Pleural Fluid Body Fluid Culture - Preliminary
[2023-02-23] MEDS ORDERED: ONDANSETRON 4 MG/2 ML VIAL IVP PRN (15:06)
[2023-02-23 15:20] LABS: Anisocytosis Slight; HCT 36.4 % (39.0-53.0); HGB 12.2 gm/dL (13.0-17.5); MCH 34.3 pg (25.0-35.0); MCHC 33.6 g/dL (31.0-37.0); MCV 102.1 fL (80.0-100.0); Macrocytosis Moderate; Mean Platelet Volume 10.1; RBC 3.56 m/uL (4.30-5.90); RDW 17.4 % (11.5-15.5); WBC 7.4 k/uL (3.8-10.6)
[2023-02-23 15:27] LABS: Platelet Count 38 k/uL (150-450)
[2023-02-23 15:32] LABS: ALT 32 U/L (4-49); AST 69 U/L (17-59); African American GFR (CKD) >90 (>60 ml/min/1.73 sqM); Albumin 2.5 g/dL (3.5-5.0); Albumin/Globulin Ratio 0.5; Alkaline Phosphatase 255 U/L (38-126); Anion Gap 5 mmol/L; Blood Urea Nitrogen 13 mg/dL (9-20); Calcium 7.7 mg/dL (8.4-10.2); Carbon Dioxide 29 mmol/L (22-30); Chloride 91 mmol/L (98-107); Globulin 5.1 g/dL; Glucose 129 mg/dL (74-99); Non-African American GFR(CKD) >90 (>60 ml/min/1.73 sqM); Potassium 3.7 mmol/L (3.5-5.1); Sodium 125 mmol/L (137-145); Total Bilirubin 2.7 mg/dL (0.2-1.3); Total Protein 7.6 g/dL (6.3-8.2)
[2023-02-24 06:50] LABS: Anisocytosis Slight; HCT 38.6 % (39.0-53.0); HGB 12.8 gm/dL (13.0-17.5); MCH 34.2 pg (25.0-35.0); MCHC 33.2 g/dL (31.0-37.0); MCV 103.1 fL (80.0-100.0); Macrocytosis Moderate; Mean Platelet Volume 9.5; RBC 3.75 m/uL (4.30-5.90); RDW 17.6 % (11.5-15.5); WBC 5.8 k/uL (3.8-10.6)
[2023-02-24 06:51] LABS: Platelet Count 39 k/uL (150-450)
[2023-02-24 08:14] LABS: ALT 32 U/L (4-49); AST 72 U/L (17-59); African American GFR (CKD) >90 (>60 ml/min/1.73 sqM); Albumin 2.7 g/dL (3.5-5.0); Albumin/Globulin Ratio 0.5; Alkaline Phosphatase 262 U/L (38-126); Anion Gap 4 mmol/L; Blood Urea Nitrogen 12 mg/dL (9-20); Calcium 9.6 mg/dL (8.4-10.2); Carbon Dioxide 33 mmol/L (22-30); Chloride 88 mmol/L (98-107); Globulin 5.4 g/dL; Glucose 104 mg/dL (74-99); Non-African American GFR(CKD) >90 (>60 ml/min/1.73 sqM); Potassium 3.5 mmol/L (3.5-5.1); Sodium 125 mmol/L (137-145); Total Protein 8.1 g/dL (6.3-8.2)
[2023-02-24] MEDS: METOPROLOL TARTRATE 12.5 MG TAB PO SCH ×3 (08:26→20:32)
[2023-02-24] MEDS: NICOTINE 21MG/24HR PATCH TRANSDERM SCH (08:26)
[2023-02-24] MEDS: SPIRONOLACTONE 25 MG TAB PO SCH ×2 (08:26→20:28)
[2023-02-24] MEDS: THIAMINE 100 MG TAB PO SCH (08:26)
[2023-02-24] MEDS: ACETAMINOPHEN TAB 500 MG TAB PO PRN ×2 (08:30→20:28)
[2023-02-24 09:29] LABS: Amylase, Fluid Source Pleural fluid
[2023-02-24 10:02] LABS: Amylase, Fluid Source Ascities
[2023-02-24] MEDS ORDERED: FUROSEMIDE 40 MG TAB PO SCH (11:45)
--- NOTE | 2023-02-24 13:25 | P.PN ---
Subjective Progress Note Date: 02/24/23 I am seeing this patient in new consultation today 02/19/2023 for a large right- sided pleural effusion. Patient is a 52-year-old white male with past medical history significant for alcoholism, drinks approximately 1 pint per day, liver cirrhosis and ascites requiring frequent paracentesis, and is a current smoker. Patient came into the emergency room last night complaining of shortness of breath and chest pain that radiated from the left side of his chest to the right. Patient was intoxicated on arrival with a serum EtOH level of 407. Patient does have large volume ascites, and his last paracentesis was reportedly 3 weeks ago. Chest x-ray on arrival shows a large sized right pleural effusion. Patient's d-dimer was elevated on arrival, probably related to the patient's liver disease. I did review the patient's chest CTA, and there is no obvious central pulmonary embolism. There was redemonstration of the large right pleural effusion. He denies taking any anticoagulants. Patient is currently resting in bed, on 6 L nasal cannula, in no acute distress. He denies any fever, chills, cough, sick contacts. He reports occasional palpitations. Denies any lower extremity swelling, orthopnea, PND, syncope. Troponin was negative 1. ECG on arrival showed no obvious evidence of acute ischemic changes. CBC shows a WBC count of 6.1, hemoglobin 13, hematocrit 39, platelets low at 69. INR is 1.5. CMP shows a sodium 140, potassium 4.3, chloride 105, serum bicarb 21, BUN 11, creatinine 0.51, glucose 127. LFTs are mildly elevated. Lipase was mildly elevated at 384. Patient is currently on the CIWA protocol, no obvious signs of withdrawal. No need for ICU admission currently. He is also receiving vitamin B1 supplementation. Vital signs are stable. On today's evaluation of 02/18/2023, the patient is not having any respiratory distress. He has developed some sinus tachycardia which could be a reflection of either an underlying infection such as SBP or early signs of delirium tremens. The patient was covered with IV Rocephin. The patient was started on metoprolol 12.5 mg 2 twice a day. He is currently on 3 L of oxygen by nasal cannula. Heart rate is between 09/21/1931. The abdomen is extensive. A total of 4.2 with hemoglobin 12.9 and platelet count of 35. BUN is 10 with a creatinine of 0.4. Sodium is at 1:30 with a potassium level of 3.4 and chloride is 96 with a bicarb of 28. Is quite debilitated. On 02/21/2023, the patient is doing well, stable, less tachycardic, currently on IV Rocephin and the patient was on metoprolol 12.5 mg twice a day. No signs of any acute lesion Primus. The patient remains on thiamine. The patient CIWA protocol. A paracentesis is also to be done today. Remains on Lasix 40 mg IV every 12 hours. Remains on Aldactone. The blood work from today shows a little resistant of 5.3 with a hemoglobin 11.6 and a platelet count of 30. BUN is at 12 with a creatinine of 0.5 and a sodium level is at 1:30. On 02/22/2023, the patient is feeling well. The patient underwent a paracentesis yesterday and a total of 3.5 L of ascitic fluid was aspirated. The patient is currently on room air oxygen with a pulse ox of 92%. Repeat chest x- ray shows complete opacification of the right hemithorax in the pleural fluid is increased significantly. Nevertheless, despite his worsening in the right-sided pleural effusion, there is no interval worsening shortness of breath. The patient will be started at 5.6 with a hemoglobin 12.5 and a platelet count of 39. Sodium is at 129, potassium is at 3.2, BUN is at 13 with a creatinine of 0.6. Glucose is 133. Serum bicarb is at 319. The patient is currently on IV Rocephin. The patient is also on Lasix 40 mg every 12 hours and Aldactone 50 mg by mouth twice a day. On today's evaluation of 02/23/2023, the patient is stable on 3 L of oxygen by nasal cannula. As noted, the chest x-ray from yesterday shows complete opacification of the right lung and the patient is going to need another thoracentesis on the right. Remains on Lasix and Aldactone. Is producing excellent urine output. He underwent a paracentesis. The ascitic fluid and the pleural fluid culture were both negative. The patient is seen today 02/24/2023 in follow-up on the regular medical floor. He is currently resting comfortably in bed. Awake and alert in no acute distress. Maintaining O2 saturations in the mid 90s on 4 L/m per nasal cannula. He did undergo a right-sided thoracentesis yesterday with 1.8 L removed with marked diminution of the right-sided pleural effusion. There is a small res idual right pleural effusion and a right perihilar and right lower lobe atelectasis. No evidence of pneumothorax. Cytology pending. White count 5.8. Hemoglobin 12.8. Lipids 39,000. Sodium 125. Potassium 3.5. Bicarb 33. BUN 12. Creatinine 0.58. Glucose 104. He remains on oral diuretics. Antibiotics in the form of ceftriaxone. NicoDerm patch in place. Objective - Vital Signs Vital signs: Vital Signs Temp 98.5 F 02/24/23 07:37 Pulse 73 02/24/23 12:49 Resp 19 02/24/23 07:37 BP 109/71 02/24/23 07:37 Pulse Ox 91 L 02/24/23 12:49 FiO2 Intake & Output 02/23/23 02/24/23 02/24/23 18:59 06:59 18:59 Other: Voiding Method Bedside Commode Bedside Commode Bedside Commode Urinal Urinal Urinal # Voids 3 2 # Bowel Movements 1 1 - Exam GENERAL EXAM: Alert, pleasant 52-year-old male, on room air, comfortable in no apparent distress. HEAD: Normocephalic. EYES: Normal reaction of pupils, equal size. NOSE: Clear with pink turbinates. THROAT: No erythema or exudates. NECK: No masses, no JVD. CHEST: No chest wall deformity. LUNGS: Equal air entry with crackles in the right base. CVS: S1 and S2 normal with no audible murmur, regular rhythm. ABDOMEN: Distended, normal bowel sounds, no guarding or rigidity. SPINE: No scoliosis or deformity SKIN: No rashes CENTRAL NERVOUS SYSTEM: No focal deficits, tone is normal in all 4 extremities. EXTREMITIES: There is no peripheral edema. No clubbing, no cyanosis. Peripheral pulses are intact. - Labs CBC & Chem 7: 02/24/23 06:15 02/24/23 06:15 Labs: Abnormal Lab Results - Last 24 Hours (Table) 02/23/23 02/23/23 02/23/23 Range/Units 15:07 15:07 17:15 RBC 3.56 L (4.30-5.90) m/uL Hgb 12.2 L (13.0-17.5) gm/dL Hct 36.4 L (39.0-53.0) % MCV 102.1 H (80.0-100.0) fL RDW 17.4 H (11.5-15.5) % Plt Count 38 L (150-450) k/uL Sodium 125 L (137-145) mmol/L Chloride 91 L (98-107) mmol/L Carbon Dioxide (22-30) mmol/L Creatinine 0.62 L (0.66-1.25) mg/dL Glucose 129 H (74-99) mg/dL Osmolality 271 L (280-301) mosm/kg Calcium 7.7 L (8.4-10.2) mg/dL Total Bilirubin 2.7 H (0.2-1.3) mg/dL AST 69 H (17-59) U/L Alkaline Phosphatase 255 H (38-126) U/L Albumin 2.5 L (3.5-5.0) g/dL Ur Random Sodium (40-220) mmol/L 02/23/23 02/24/23 02/24/23 Range/Units 20:11 06:15 06:15 RBC 3.75 L (4.30-5.90) m/uL Hgb 12.8 L (13.0-17.5) gm/dL Hct 38.6 L (39.0-53.0) % MCV 103.1 H (80.0-100.0) fL RDW 17.6 H (11.5-15.5) % Plt Count 39 L (150-450) k/uL Sodium 125 L (137-145) mmol/L Chloride 88 L (98-107) mmol/L Carbon Dioxide 33 H (22-30) mmol/L Creatinine 0.58 L (0.66-1.25) mg/dL Glucose 104 H (74-99) mg/dL Osmolality (280-301) mosm/kg Calcium (8.4-10.2) mg/dL Total Bilirubin 3.0 H (0.2-1.3) mg/dL AST 72 H (17-59) U/L Alkaline Phosphatase 262 H (38-126) U/L Albumin 2.7 L (3.5-5.0) g/dL Ur Random Sodium <20 L (40-220) mmol/L Microbiology - Last 24 Hours (Table) 02/21/23 13:26 Gram Stain - Preliminary Ascites Fluid Body Fluid Culture - Preliminary 02/19/23 12:15 Gram Stain - Final Pleural Fluid Body Fluid Culture - Final Assessment and Plan Assessment: Acute hypoxemic respiratory failure, currently on room air oxygen and the patient had a large right-sided pleural effusion/hepatic hydrothorax, he underwent a thoracentesis on 02/19/2023 with a total of 2.4 L of fluid being removed, repeat chest x-ray from today shows persistent hepatic hydrothorax a large right-sided pleural effusion. The repeat thoracentesis 02/23/2023 with 1.8 L removed Pneumothorax ex vacuo the right upper lung field in the order of 5-10%, not seen on follow-up chest x-ray as the right lung is completely opacified Ascites post paracentesis and the patient has a total of 3.5 L of ascitic fluid removed Sinus tachycardia, rule out underlying SBP and the patient is currently on IV Rocephin. Rule out early signs of delirium tremens, the tachycardia is improved and the patient is currently on beta blockers. Chest pain, acute coronary syndrome ruled out Elevated d-dimer, no obvious central pulmonary embolism on chest CTA Acute alcohol intoxication, serum EtOH was 407 on arrival History of alcoholism History of alcohol withdrawal and delirium tremens Alcoholic liver disease and ascites Thrombocytopenia, likely related to liver disease Current smoker Plan: The patient was seen and evaluated Chest x-ray, labs and medications reviewed Cleared for discharge from the pulmonary standpoint The patient has regular paracentesis/thoracentesis scheduled at [facility] in [place] He states he'll continue to follow up there I have personally seen and examined the patient, performed the documentation and the assessment and plan as written. Number of minutes spent on the visit: 10.
[2023-02-24] MEDS: SODIUM CHLORIDE 0.9% 1,000 ML IV SCH (13:54)
--- NOTE | 2023-02-24 14:40 | P.NPCON ---
History of Present Illness - Reason for Consult acute renal failure, hyponatremia - History of Present Illness Patient is a 52-year-old male with history of alcoholic liver disease who was admitted to the hospital with complaints of shortness of breath and chest discomfort. Patient has had right thoracentesis for large right pleural effusion as well as paracentesis of about 2.8 L. Respiratory status has improved. Sodium has decreased slowly from around 135 to 125 today over the past 5 days. Patient admits to increased water intake recently. Blood pressure has been low with systolic 97-93 mmHg. Patient has been voiding. Currently maintained on oral Lasix, started today. Review of Systems As per HPI Past Medical History Past Medical History: Renal Disease Additional Past Medical History / Comment(s): Ascites, History of Any Multi-Drug Resistant Organisms: None Reported Past Psychological History: Depression Smoking Status: Current some day smoker Past Alcohol Use History: Daily, Heavy Past Drug Use History: None Reported - Past Family History Mother Family Medical History: Diabetes Mellitus Medications and Allergies Home Medications Medication Instructions Recorded Confirmed Type Furosemide [Lasix] 40 mg PO DAILY 02/19/23 02/19/23 History Spironolactone [Aldactone] 50 mg PO BID 02/19/23 02/19/23 History Allergies Allergy/AdvReac Type Severity Reaction Status Date / Time latex Allergy Rash/Hives Verified 02/19/23 08:00 Physical Exam Vitals: Vital Signs Temp Pulse Pulse Pulse Resp BP Pulse Ox 02/24/23 12:49 73 75 02/24/23 11:59 95 02/24/23 07:37 98.5 F 72 19 109/71 95 02/24/23 02:00 99.0 F 87 17 93/57 92 L 02/23/23 20:00 107 H 19 02/23/23 19:56 98.3 F 107 H 19 105/64 95 Pulse Ox Pulse Ox 02/24/23 12:49 91 L 92 L 02/24/23 11:59 02/24/23 07:37 02/24/23 02:00 02/23/23 20:00 02/23/23 19:56 Intake and Output 02/23/23 02/24/23 02/24/23 22:59 06:59 14:59 Other: Voiding Method Bedside Commode Bedside Commode Urinal Urinal # Voids 3 2 # Bowel Movements 1 1 Patient is awake, comfortable, no acute distress Examination of the heart S1 and S2 Examination of the lungs bilateral breath sounds are heard Abdomen is soft nontender Examination lower extremity shows no evidence of edema MGMT ANALYST exam grossly intact Results - Lab Results Most recent lab results Calcium 9.6 mg/dL (8.4-10.2) 02/24/23 06:15 Magnesium 1.8 mg/dL (1.6-2.3) 02/18/23 22:46 02/24/23 06:15 02/24/23 06:15 Assessment and Plan Assessment: 1. Hyponatremia associated with chronic liver disease and possible hypovolemic component. Urine sodium is less than 20. I will add gentle IV hydration with saline. Patient is also advised to restrict free water intake. Repeat sodium in 4 hours 2. Chronic liver disease with ascites status post paracentesis 3. Right pleural effusion status post paracentesis 4. Alcoholic hepatitis 5. Hypokalemia associated with decreased oral intake Plan: Hold diuretics Challenge with normal saline Repeat sodium in 4 hours Maintain free water restriction Encourage increased oral intake. Thank you for the consultation. We will continue to follow the patient with you during his hospitalization
--- NOTE | 2023-02-24 15:07 | P.PN ---
Subjective Progress Note Date: 02/24/23 The patient is a 52-year-old male with a PMH of alcoholic cirrhosis with ongoing alcohol abuse who presents to the emergency room with complaints of chest discomfort or shortness of breath. He underwent an extensive evaluation in the emergency room. Laboratory evaluation was remarkable for an alcohol level of 407, WBC count 6.1, hemoglobin 13, because 69, d-dimer 7.07, troponin less than 0.012, sodium 140, potassium 4.3, chloride 105, CO2 21, BUN 11, creatinine 0.5, glucose 127. CT chest revealed a large right-sided pleural effusion appearing loculated causing collapse of the right lung. There was no evidence for pulmonary embolism. Patient started on Lasix 40 mg IV twice a day. Aldactone was restarted. Pulmonology was consulted and patient underwent thoracentesis with removal of 2400 mL of fluid. He was empirically started on Rocephin for treatment of SBP. Interventional radiology was consulted for paracentesis. Unfortunately, this procedure was delayed due to a platelet count of 35. He underwent thoracentesis on 02/19 with removal 2400 mL of fluid. 02/20 Patient was seen and examined. No acute events overnight. Patient reports no complaints. He has been tachycardic with heart rate in the 130-140s. CBC today shows Hg 12.9 and platelet count of 35. CMP shows Na 132. K 3.4, Cl 96, Cr 0.46, Ca 7.9, T. Bili 3.8, AST 114, alk phos 376, albumin 3.0. 02/21 Patient was seen and examined. Sleeping comfortably. Paracentesis held yesterday due to thrombocytopenia. Plans to recieve platelets along with paracentesis today. CBC shows hemoglobin of 11.9 and MCV 100.8 with platelet count of 30. CMP shows sodium of 130, chloride of 95, bicarb of 31, creatinine of 0.57, calcium is 1.8, total bilirubin of 3.8, AST of 94, alkaline phosphatase of 321 and albumin of 2.7. Currently on 2L NC saturating low 90s. Echo shows EF 50-55% with moderate LVH. 02/22 Patient was seen and examined. He reports his breathing to be stable. Underwent 1 unit platelet transfusion along with paracentesis yesterday with removal of 2.5L fluid. CBC shows hemoglobin of 12.5, MCV of 102.8 and platelet count of 39. CMP shows sodium 129, potassium of 3.2, chloride of 90, bicarb of 35, glucose 133, total bilirubin of 2.8, AST of 85, alkaline phosphatase of 318 and albumin of 2.8. Chest x-ray shows right-sided pleural effusion, worsened since previous x-ray. 02/23 Patient was seen and examined. Bedside thoracentesis done today by Dr. Gio lawrence with removal of 1.8L fluid. Nursing reports patient had a syncopal episode soon after the paracentesis. No head trauma. BP was low at 72/46 which has since improved to SBP in the 100s. He is currently on 4L NC. CBC and CMP pending today. CXR post procedure shows significantly improved right sided pleural effusion. 02/24 Patient was seen and examined. He has no complaints today. Passed his home O2 eval. CBC shows hemoglobin of 12.8 with MCV of 103.1 and platelet count of 39. CMP shows sodium 125, chloride of 88, bicarb of 33, creatinine is 0.58, glucose 104, total bilirubin of 3, AST of 72, alkaline phosphatase of 262 and albumin at 2.7. Serum osmolality 271. Urine osmolality 719. Urine sodium less than 20. He has been cleared by Pulmonology for discharge. General: Jaundiced appearing male, no distress, appears at stated age, normal weight Derm: no unusual rashes/lesions, warm Head: atraumatic, normocephalic, symmetric Eyes: EOMI, no lid lag, scleral icterus noted ENT: Nose and ears atraumatic Cardiovascular: Normal S1 S2, no murmur, no edema Lungs: Decreased BS bilateral, no rhonchi, no rales, no accessory muscle use Abdominal: Distended, nontender to palpation, no guarding Ext: muscle strength 5 out of 5 in all 4 extremities grossly, no gross muscle atrophy, no contractures, Neuro: no gross focal neuro deficits Psych: Alert, oriented, appropriate affect Hyponatremia Syncope Acute hypoxic respiratory failure likely secondary to large R sided pleural effusion Alcoholic cirrhosis Ongoing alcohol abuse Thrombocytopenia Macrocytosis Based on my assessment of this patient, this patient meets a moderate complexity level of care. Patient has an acute diagnosis of acute hypoxic respiratory failure secondary to large loculated right-sided pleural effusion that poses a threat to life or bodily function. He underwent thoracentesis on 02/19 with removal 2400 mL of fluid. Underwent paracentesis with 2.5L fluid removal on 02/21 with transfusion 1 unit platelet. Underwent thoracentesis with removal of 1800 ml of fluid on 02/23. Continue Aldactone 50 mg by mouth twice a day. Continue metoprolol 12.5 mg by mouth twice a day for tachycardia. Continue CIWA protocol with Ativan as needed. Syncopal episode and hypotension likely related to drop in cardiac output after thoracentesis. He has significantly improved when re-evaluated. Nephrology consulted for hyponatremia. Osmolality seems to point at SIADH as the cause of hyponatremia. He is currently on 1.5L fluid restriction. Nephrology recommends holding diuretics, continue free water restriction and challenge with NS with repeat Na in 4 hours. SCDs for DVT prophylaxis. FULL CODE. I have reviewed the following client consultant notes: Pulmonology and Nephrology note as above. I have reviewed the results of the following tests: CBC, CMP, SOsm, UOsm, Daniel as above. I have ordered the following tests: BMP ordered for tomorrow morning. I have discussed the care of this patient with the following independent historian: I have independently interpreted the following test below: I have discussed the management of this patient with the following physician: Patient currently undergoing workup for hyponatremia. Anticipate DC in 1-2 days if sodium level improves. Objective - Vital Signs Vital signs: Vital Signs Temp 98.5 F 02/24/23 07:37 Pulse 73 02/24/23 12:49 Resp 19 02/24/23 07:37 BP 109/71 02/24/23 07:37 Pulse Ox 91 L 02/24/23 12:49 FiO2 Intake & Output 02/23/23 02/24/23 02/24/23 18:59 06:59 18:59 Other: Voiding Method Bedside Commode Bedside Commode Bedside Commode Urinal Urinal Urinal # Voids 3 2 # Bowel Movements 1 1 - Labs CBC & Chem 7: 02/24/23 06:15 02/24/23 06:15 Labs: Abnormal Lab Results - Last 24 Hours (Table) 02/23/23 02/23/23 02/23/23 Range/Units 15:07 15:07 17:15 RBC 3.56 L (4.30-5.90) m/uL Hgb 12.2 L (13.0-17.5) gm/dL Hct 36.4 L (39.0-53.0) % MCV 102.1 H (80.0-100.0) fL RDW 17.4 H (11.5-15.5) % Plt Count 38 L (150-450) k/uL Sodium 125 L (137-145) mmol/L Chloride 91 L (98-107) mmol/L Carbon Dioxide (22-30) mmol/L Creatinine 0.62 L (0.66-1.25) mg/dL Glucose 129 H (74-99) mg/dL Osmolality 271 L (280-301) mosm/kg Calcium 7.7 L (8.4-10.2) mg/dL Total Bilirubin 2.7 H (0.2-1.3) mg/dL AST 69 H (17-59) U/L Alkaline Phosphatase 255 H (38-126) U/L Albumin 2.5 L (3.5-5.0) g/dL Ur Random Sodium (40-220) mmol/L 02/23/23 02/24/23 02/24/23 Range/Units 20:11 06:15 06:15 RBC 3.75 L (4.30-5.90) m/uL Hgb 12.8 L (13.0-17.5) gm/dL Hct 38.6 L (39.0-53.0) % MCV 103.1 H (80.0-100.0) fL RDW 17.6 H (11.5-15.5) % Plt Count 39 L (150-450) k/uL Sodium 125 L (137-145) mmol/L Chloride 88 L (98-107) mmol/L Carbon Dioxide 33 H (22-30) mmol/L Creatinine 0.58 L (0.66-1.25) mg/dL Glucose 104 H (74-99) mg/dL Osmolality (280-301) mosm/kg Calcium (8.4-10.2) mg/dL Total Bilirubin 3.0 H (0.2-1.3) mg/dL AST 72 H (17-59) U/L Alkaline Phosphatase 262 H (38-126) U/L Albumin 2.7 L (3.5-5.0) g/dL Ur Random Sodium <20 L (40-220) mmol/L Microbiology - Last 24 Hours (Table) 02/21/23 13:26 Anaerobic Culture - Preliminary Ascites Fluid 02/21/23 13:26 Gram Stain - Preliminary Ascites Fluid Body Fluid Culture - Preliminary 02/19/23 12:15 Gram Stain - Final Pleural Fluid Body Fluid Culture - Final
[2023-02-24 18:55] LABS: African American GFR (CKD) >90 (>60 ml/min/1.73 sqM); Anion Gap 5 mmol/L; Blood Urea Nitrogen 11 mg/dL (9-20); Calcium 8.9 mg/dL (8.4-10.2); Carbon Dioxide 32 mmol/L (22-30); Chloride 90 mmol/L (98-107); Glucose 117 mg/dL (74-99); Non-African American GFR(CKD) >90 (>60 ml/min/1.73 sqM); Potassium 3.3 mmol/L (3.5-5.1); Sodium 127 mmol/L (137-145)
[2023-02-24 20:51] VITALS: RESP 19
[2023-02-25 07:38] LABS: African American GFR (CKD) >90 (>60 ml/min/1.73 sqM); Anion Gap 3 mmol/L; Blood Urea Nitrogen 12 mg/dL (9-20); Calcium 8.5 mg/dL (8.4-10.2); Carbon Dioxide 31 mmol/L (22-30); Chloride 93 mmol/L (98-107); Glucose 114 mg/dL (74-99); Non-African American GFR(CKD) >90 (>60 ml/min/1.73 sqM); Potassium 3.3 mmol/L (3.5-5.1); Sodium 127 mmol/L (137-145)
[2023-02-25] MEDS: SPIRONOLACTONE 25 MG TAB PO SCH (08:00)
[2023-02-25] MEDS: THIAMINE 100 MG TAB PO SCH (08:00)
[2023-02-25] MEDS: NICOTINE 21MG/24HR PATCH TRANSDERM SCH (08:00)
[2023-02-25] MEDS: SODIUM CHLORIDE 0.9% 1,000 ML IV SCH (08:00)
[2023-02-25] MEDS: METOPROLOL TARTRATE 12.5 MG TAB PO SCH (08:00)
[2023-02-25 08:33] VITALS: BP 105/71; PULSE 98; TEMP 97.8
[2023-02-25] MEDS ORDERED: POTASSIUM CHLORIDE ER 20 MEQ TAB.ER PO STA (09:19)
--- NOTE | 2023-02-25 12:02 | P.PN ---
Subjective Patient is seen for follow-up for hyponatremia in the setting of liver cirrhosis. Patient was started on normal saline yesterday. Sodium has improved to 127. No other complaints today Patient wants to go home. He is advised regarding fluid restriction post discharge. Objective - Vital Signs Vital signs: Vital Signs Temp 97.8 F 02/25/23 07:24 Pulse 98 02/25/23 07:24 Resp 19 02/25/23 07:24 BP 105/71 02/25/23 07:24 Pulse Ox 94 L 02/25/23 09:24 FiO2 Intake & Output 02/24/23 02/25/23 02/25/23 18:59 06:59 18:59 Other: Voiding Method Bedside Commode Bedside Commode Toilet Urinal Urinal Urinal # Voids 2 2 - Exam Patient is awake, comfortable, no acute distress Examination of the heart S1 and S2 Examination of the lungs bilateral breath sounds are heard Abdomen is soft nontender Examination lower extremity shows no evidence of edema HEARING AID MECHANIC exam grossly intact - Labs CBC & Chem 7: 02/24/23 06:15 02/25/23 06:44 Labs: Abnormal Lab Results - Last 24 Hours (Table) 02/24/23 02/25/23 Range/Units 18:12 06:44 Sodium 127 L 127 L (137-145) mmol/L Potassium 3.3 L 3.3 L (3.5-5.1) mmol/L Chloride 90 L 93 L (98-107) mmol/L Carbon Dioxide 32 H 31 H (22-30) mmol/L Creatinine 0.62 L 0.53 L (0.66-1.25) mg/dL Glucose 117 H 114 H (74-99) mg/dL Microbiology - Last 24 Hours (Table) 02/21/23 13:26 Gram Stain - Preliminary Ascites Fluid Body Fluid Culture - Preliminary 02/21/23 13:26 Anaerobic Culture - Preliminary Ascites Fluid Assessment and Plan Assessment: 1. Hyponatremia associated with chronic liver disease and possible hypovolemic component. Urine sodium is less than 20. Sodium improved with saline. Patient can be discharged from nephrology standpoint. He is advised regarding mainta ining fluid restriction at less than 1-1.2 L per day. 2. Chronic liver disease with ascites status post paracentesis 3. Right pleural effusion status post paracentesis 4. Alcoholic hepatitis 5. Hypokalemia associated with decreased oral intake Plan: Patient can be discharged from nephrology standpoint Replace potassium Repeat labs in 1-2 days post discharge Maintain fluid restriction at less than 1-1.2 L per day. Patient will likely need to resume loop diuretics depending on his volume status and labs. Follow-up as outpatient in 1 week
--- NOTE | 2023-02-25 13:12 | P.PN ---
Subjective Progress Note Date: 02/25/23 I am seeing this patient in new consultation today 02/19/2023 for a large right- sided pleural effusion. Patient is a 52-year-old white male with past medical history significant for alcoholism, drinks approximately 1 pint per day, liver cirrhosis and ascites requiring frequent paracentesis, and is a current smoker. Patient came into the emergency room last night complaining of shortness of breath and chest pain that radiated from the left side of his chest to the right. Patient was intoxicated on arrival with a serum EtOH level of 407. Patient does have large volume ascites, and his last paracentesis was reportedly 3 weeks ago. Chest x-ray on arrival shows a large sized right pleural effusion. Patient's d-dimer was elevated on arrival, probably related to the patient's liver disease. I did review the patient's chest CTA, and there is no obvious central pulmonary embolism. There was redemonstration of the large right pleural effusion. He denies taking any anticoagulants. Patient is currently resting in bed, on 6 L nasal cannula, in no acute distress. He denies any fever, chills, cough, sick contacts. He reports occasional palpitations. Denies any lower extremity swelling, orthopnea, PND, syncope. Troponin was negative 1. ECG on arrival showed no obvious evidence of acute ischemic changes. CBC shows a WBC count of 6.1, hemoglobin 13, hematocrit 39, platelets low at 69. INR is 1.5. CMP shows a sodium 140, potassium 4.3, chloride 105, serum bicarb 21, BUN 11, creatinine 0.51, glucose 127. LFTs are mildly elevated. Lipase was mildly elevated at 384. Patient is currently on the CIWA protocol, no obvious signs of withdrawal. No need for ICU admission currently. He is also receiving vitamin B1 supplementation. Vital signs are stable. On today's evaluation of 02/18/2023, the patient is not having any respiratory distress. He has developed some sinus tachycardia which could be a reflection of either an underlying infection such as SBP or early signs of delirium tremens. The patient was covered with IV Rocephin. The patient was started on metoprolol 12.5 mg 2 twice a day. He is currently on 3 L of oxygen by nasal cannula. Heart rate is between 09/21/1931. The abdomen is extensive. A total of 4.2 with hemoglobin 12.9 and platelet count of 35. BUN is 10 with a creatinine of 0.4. Sodium is at 1:30 with a potassium level of 3.4 and chloride is 96 with a bicarb of 28. Is quite debilitated. On 02/21/2023, the patient is doing well, stable, less tachycardic, currently on IV Rocephin and the patient was on metoprolol 12.5 mg twice a day. No signs of any acute lesion Primus. The patient remains on thiamine. The patient CIWA protocol. A paracentesis is also to be done today. Remains on Lasix 40 mg IV every 12 hours. Remains on Aldactone. The blood work from today shows a little resistant of 5.3 with a hemoglobin 11.6 and a platelet count of 30. BUN is at 12 with a creatinine of 0.5 and a sodium level is at 1:30. On 02/22/2023, the patient is feeling well. The patient underwent a paracentesis yesterday and a total of 3.5 L of ascitic fluid was aspirated. The patient is currently on room air oxygen with a pulse ox of 92%. Repeat chest x- ray shows complete opacification of the right hemithorax in the pleural fluid is increased significantly. Nevertheless, despite his worsening in the right-sided pleural effusion, there is no interval worsening shortness of breath. The patient will be started at 5.6 with a hemoglobin 12.5 and a platelet count of 39. Sodium is at 129, potassium is at 3.2, BUN is at 13 with a creatinine of 0.6. Glucose is 133. Serum bicarb is at 319. The patient is currently on IV Rocephin. The patient is also on Lasix 40 mg every 12 hours and Aldactone 50 mg by mouth twice a day. On today's evaluation of 02/23/2023, the patient is stable on 3 L of oxygen by nasal cannula. As noted, the chest x-ray from yesterday shows complete opacification of the right lung and the patient is going to need another thoracentesis on the right. Remains on Lasix and Aldactone. Is producing excellent urine output. He underwent a paracentesis. The ascitic fluid and the pleural fluid culture were both negative. The patient is seen today 02/24/2023 in follow-up on the regular medical floor. He is currently resting comfortably in bed. Awake and alert in no acute distress. Maintaining O2 saturations in the mid 90s on 4 L/m per nasal cannula. He did undergo a right-sided thoracentesis yesterday with 1.8 L removed with marked diminution of the right-sided pleural effusion. There is a small res idual right pleural effusion and a right perihilar and right lower lobe atelectasis. No evidence of pneumothorax. Cytology pending. White count 5.8. Hemoglobin 12.8. Lipids 39,000. Sodium 125. Potassium 3.5. Bicarb 33. BUN 12. Creatinine 0.58. Glucose 104. He remains on oral diuretics. Antibiotics in the form of ceftriaxone. NicoDerm patch in place. The patient is seen today 02/25/2023 in follow-up on the regular medical floor. He is awake and alert in no acute distress. Resting comfortably in bed. Maintaining O2 saturations in the 90s on 2 L/m per nasal cannula. He's been a febrile. Hemodynamically stable. Peritoneal and pleural fluid cytology is pending. Sodium 127. Potassium 3.3. Bicarbonate 31. BUN 12. Creatinine 0.53. Glucose 114. He remains on oral diuretics. Antibiotics in the form of ceftriaxone. NicoDerm patch in place. Objective - Vital Signs Vital signs: Vital Signs Temp 97.8 F 02/25/23 07:24 Pulse 98 02/25/23 07:24 Resp 19 02/25/23 07:24 BP 105/71 02/25/23 07:24 Pulse Ox 94 L 02/25/23 09:24 FiO2 Intake & Output 02/24/23 02/25/23 02/25/23 18:59 06:59 18:59 Other: Voiding Method Bedside Commode Bedside Commode Toilet Urinal Urinal Urinal # Voids 2 2 - Exam GENERAL EXAM: Alert, 52-year-old male, resting in bed, on room air, comfortable in no apparent distress. HEAD: Normocephalic. EYES: Normal reaction of pupils, equal size. NOSE: Clear with pink turbinates. THROAT: No erythema or exudates. NECK: No masses, no JVD. CHEST: No chest wall deformity. LUNGS: Equal air entry with crackles in the right base. CVS: S1 and S2 normal with no audible murmur, regular rhythm. ABDOMEN: Distended, normal bowel sounds, no guarding or rigidity. SPINE: No scoliosis or deformity SKIN: No rashes CENTRAL NERVOUS SYSTEM: No focal deficits, tone is normal in all 4 extremities. EXTREMITIES: There is no peripheral edema. No clubbing, no cyanosis. Peripheral pulses are intact. - Labs CBC & Chem 7: 02/24/23 06:15 02/25/23 06:44 Labs: Abnormal Lab Results - Last 24 Hours (Table) 02/24/23 02/25/23 Range/Units 18:12 06:44 Sodium 127 L 127 L (137-145) mmol/L Potassium 3.3 L 3.3 L (3.5-5.1) mmol/L Chloride 90 L 93 L (98-107) mmol/L Carbon Dioxide 32 H 31 H (22-30) mmol/L Creatinine 0.62 L 0.53 L (0.66-1.25) mg/dL Glucose 117 H 114 H (74-99) mg/dL Microbiology - Last 24 Hours (Table) 02/21/23 13:26 Gram Stain - Preliminary Ascites Fluid Body Fluid Culture - Preliminary 02/21/23 13:26 Anaerobic Culture - Preliminary Ascites Fluid Assessment and Plan Assessment: Acute hypoxemic respiratory failure, currently on room air oxygen and the patient had a large right-sided pleural effusion/hepatic hydrothorax, he underwent a thoracentesis on 02/19/2023 with a total of 2.4 L of fluid being removed, repeat chest x-ray from today shows persistent hepatic hydrothorax a large right-sided pleural effusion. The repeat thoracentesis 02/23/2023 with 1.8 L removed Pneumothorax ex vacuo the right upper lung field in the order of 5-10%, not seen on follow-up chest x-ray as the right lung is completely opacified Ascites post paracentesis and the patient has a total of 3.5 L of ascitic fluid removed Sinus tachycardia, rule out underlying SBP and the patient is currently on IV Rocephin. Rule out early signs of delirium tremens, the tachycardia is improved and the patient is currently on beta blockers. Chest pain, acute coronary syndrome ruled out Elevated d-dimer, no obvious central pulmonary embolism on chest CTA Acute alcohol intoxication, serum EtOH was 407 on arrival History of alcoholism Hyponatremia secondary to above History of alcohol withdrawal and delirium tremens Alcoholic liver disease and ascites Thrombocytopenia, likely related to liver disease Current smoker Plan: The patient was seen and evaluated Labs and medications reviewed Cleared for discharge from the pulmonary standpoint Follow-up closely with his PCP The patient has regular paracentesis/thoracentesis scheduled at [facility] in [place] He states he'll continue to follow up there I have personally seen and examined the patient, performed the documentation and the assessment and plan as written. Number of minutes spent on the visit: 10.
--- NOTE | 2023-02-25 16:52 | P.DS ---
Providers Date of admission: 02/19/23 02:32 Expected date of discharge: 02/25/23 Attending physician: Ericka Bañuelos MD Consults: 02/19/23 05:49 Consult Physician Urgent Consulting Provider: Camila Pugh Consult Reason/Comments: large pleural effusion Do you want consulting provider notified?: Yes Placement Type Exists?: Yes 02/23/23 16:04 Consult Physician Routine Consulting Provider: Deangelo Mak Consult Reason/Comments: HypoNa Do you want consulting provider notified?: Yes Primary care physician: Stated None Hospital Course: Hyponatremia Syncope Acute hypoxic respiratory failure likely secondary to large R sided pleural effusion Alcoholic cirrhosis Ongoing alcohol abuse Thrombocytopenia Macrocytosis The patient is a 52-year-old male with a PMH of alcoholic cirrhosis with ongoing alcohol abuse who presents to the emergency room with complaints of chest discomfort or shortness of breath. He underwent an extensive evaluation in the emergency room. Laboratory evaluation was remarkable for an alcohol level of 407, WBC count 6.1, hemoglobin 13, because 69, d-dimer 7.07, troponin less than 0.012, sodium 140, potassium 4.3, chloride 105, CO2 21, BUN 11, creatinine 0.5, glucose 127. CT chest revealed a large right-sided pleural effusion appearing loculated causing collapse of the right lung. There was no evidence for pulmonary embolism. Patient started on Lasix 40 mg IV twice a day. Aldactone was restarted. Pulmonology was consulted and patient underwent thoracentesis with removal of 2400 mL of fluid. He was empirically started on Rocephin for treatment of SBP. Interventional radiology was consulted for paracentesis. Unfortunately, this procedure was delayed due to a platelet count of 35. He underwent paracentesis on 02/19 with removal 2400 mL of fluid. Underwent 1 unit platelet transfusion along with paracentesis. On 02/23, Bedside thoracentesis done today by Dr. Pugh with removal of 1.8L fluid was completed. Nephrology was also consulted for low sodium and recommended fluid restriction, aldactone, lasix. Pt will be discharged with instructiosn to f/u with PCP, repeat BMP and magnesium. He will continue his routine scheduled paracentesis appointments with IR in the [place] area. I spent 42 minutes coordinating this discharge Gen: awake, alert HEENT: normocephalic, atraumatic, good hearing acuity, moist mucous membranes Resp: good air exchange, breathing comfortably with no accessory muscle use CVS: good distal perfusion x 4, GI: soft, NTTP, ND : no SPT, no CVAT, vora catheter not present MSK: bilateral pitting edema, no clubbing Neuro: non-focal, moving all extremities Psych: cooperative, euthymic mood Patient Condition at Discharge: Good Plan - Discharge Summary New Discharge Prescriptions: New Metoprolol Tartrate [Lopressor] 12.5 mg PO BID 30 Days #60 tablet Thiamine [Vitamin B-1] 100 mg PO DAILY #14 tablet Continue Furosemide [Lasix] 40 mg PO DAILY Spironolactone [Aldactone] 50 mg PO BID Discharge Medication List Furosemide [Lasix] 40 mg PO DAILY 02/19/23 [History] Spironolactone [Aldactone] 50 mg PO BID 02/19/23 [History] Metoprolol Tartrate [Lopressor] 12.5 mg PO BID 30 Days #60 tablet 02/25/23 [Rx] Thiamine [Vitamin B-1] 100 mg PO DAILY #14 tablet 02/25/23 [Rx] Follow up Appointment(s)/Referral(s): [facility], [NON-STAFF] - As Needed None,Stated [Primary Care Provider] - 1-2 days Ambulatory/Diagnostic Orders: Basic Metabolic Panel [LAB.AMB] Location: None Selected Magnesium [LAB.AMB] Location: None Selected Activity/Diet/Wound Care/Special Instructions: Limit fluids to a total of 1.2L daily, this is equivalent to 40 ounces of water daily. Please obtain repeat BMP, magnesium blood work and review this blood work with primary care physician who you should see within 1 week of discharge. Continue scheduled thoracentesis/paracentesis as established with your specialists in [place]. Discharge Disposition: HOME SELF-CARE
[2023-02-25 20:13] LABS: Lipase, Body Fluid 19 U/L; Lipase, Fluid Source Pleural Fluid
[2023-02-27 11:20] LABS: Albumin, Fluid Source Pleural Fluid
== END 2023-02-25 11:55 | disposition home or self-care (01) | DRG 143 ==
LOC: EC 22:35 → 4SSUR 02-19 02:32
PROVIDERS: ADMIT Internal Medicine; ATTEND Internal Medicine
PROC: 0W993ZX Drainage of Right Pleural Cavity, Percutaneous Approach, Diagnostic (ICD-10-PCS; principal; 2023-02-19)
PROC: 0W9G3ZX Drainage of Peritoneal Cavity, Percutaneous Approach, Diagnostic (ICD-10-PCS; 2023-02-21)
PROC: 30233R1 Transfusion of Nonautologous Platelets into Peripheral Vein, Percutaneous Approach (ICD-10-PCS; 2023-02-21)
PROC: 0W993ZZ Drainage of Right Pleural Cavity, Percutaneous Approach (ICD-10-PCS; 2023-02-23)
DX: J90 Pleural effusion, not elsewhere classified (principal); J98.19 Other pulmonary collapse; J96.01 Acute respiratory failure with hypoxia; K70.31 Alcoholic cirrhosis of liver with ascites; D69.59 Other secondary thrombocytopenia; F10.229 Alcohol dependence with intoxication, unspecified; K70.11 Alcoholic hepatitis with ascites; I95.9 Hypotension, unspecified; E87.1 Hypo-osmolality and hyponatremia; J93.9 Pneumothorax, unspecified; J94.8 Other specified pleural conditions; Y90.8 Blood alcohol level of 240 mg/100 ml or more; E87.6 Hypokalemia; J98.11 Atelectasis; F32.A Depression, unspecified; D75.89 Other specified diseases of blood and blood-forming organs; R00.0 Tachycardia, unspecified; F17.200 Nicotine dependence, unspecified, uncomplicated; Z71.6 Tobacco abuse counseling; Z79.899 Other long term (current) drug therapy; Z71.41 Alcohol abuse counseling and surveillance of alcoholic; Z91.040 Latex allergy status
CPT/HCPCS: 36415; 49083; 71045; 71046; 71275; 80048; 80053; 80320; 82042; 82150; 82570; 82945; 83615; 83690; 83735; 83880; 83930; 83935; 84155; 84157; 84300; 84484; 85025; 85027; 85379; 85610; 85730; 86850; 86900; 86901; 87070; 87075; 87205; 88108; 88305; 89050; 93005; 93308; 94760; 99285